=== PATIENT | female | born 1965 | race Caucasian/White ===

== ENCOUNTER 2023-06-05 07:57 | Outpatient (OUT) | payer OTHER, SELFPAY ==
--- NOTE | 2023-06-05 08:00 | MM_ITS ---
Patient Name: ALVIN GARCIA MR#: [id number] : 1965 Exam Date: 06/05/2023 Ordering Doctor: DR Ashish Jansen . RADIOLOGY REPORT PROCEDURE: MM TOMOSYNTHESIS SCREENING BI COMPARISON: MG MAMM SCREEN 3D PO CAD, 11/29/2021. MG MAMM SCREEN PO W CAD, 03/17/2019. MG MAMM SCREEN PO W CAD, 03/16/2018. MG MAMM PO SCRN W CAD DIG, 12/13/2012. INDICATIONS: Screening Calculator Name NCI Breast Cancer Risk Assessment Tool 5 Year Breast Cancer Risk 1.40% Lifetime Breast Cancer Risk 8.90% Personal Breast Cancer No Personal Ovarian Cancer No Treatments None Family Cancers Mother with lung cancer at age 49; Father with lung cancer at age ~66. LOCATION: [facility] BREAST COMPOSITION: Almost entirely fatty. FINDINGS: DIAGNOSTIC CATEGORY 0--INCOMPLETE: NEED ADDITIONAL IMAGING EVALUATION. RIGHT BREAST: No significant suspicious finding. No significant change has occurred. LEFT BREAST: 8 mm nodule with slightly spiculated margins within upper inner quadrant, mid breast. Spot magnification views and ultrasound evaluation recommended. RECOMMENDATIONS: ADDITIONAL MAMMOGRAPHIC VIEWS REQUIRED: LEFT BREAST - LEFT CRANIOCAUDAL SPOT MAGNIFICATION VIEW - LEFT OBLIQUE SPOT MAGNIFICATION VIEW - ULTRASOUND: LEFT BREAST PLEASE NOTE: A NORMAL MAMMOGRAM DOES NOT EXCLUDE THE POSSIBILITY OF BREAST CANCER. A CLINICALLY SUSPICIOUS PALPABLE LUMP SHOULD BE BIOPSIED. Dictated by: Partha Palma M.D. on 06/05/2023 at 15:56 Approved by: Partha Palma M.D. on 06/05/2023 at 16:00
== END 2023-06-05 07:58 | disposition home or self-care (01) ==
LOC: MAMMO 07:57
PROVIDERS: Visit Provider Obstetrics & Gynecology
DX: Z12.31 Encounter for screening mammogram for malignant neoplasm of breast (principal); Z80.1 Family history of malignant neoplasm of trachea, bronchus and lung; N63.22 Unspecified lump in the left breast, upper inner quadrant
CPT/HCPCS: 77063; 77067

== ENCOUNTER 2023-06-18 13:53 | Outpatient (OUT) | payer OTHER, SELFPAY ==
--- NOTE | 2023-06-18 13:56 | US_ITS ---
Patient Name: ALVIN GARCIA MR#: [id number] : 1965 Exam Date: 06/18/2023 Ordering Doctor: DR Ashish Jansen . RADIOLOGY REPORT PROCEDURE: MM DIAGNOSTIC MAMMO UNILAT LT, 06/18/2023, 14:08 US BREAST LT LIMITED, 06/18/2023, 13:39 COMPARISON: MM TOMOSYNTHESIS SCREENING BI, 06/05/2023. MG MAMM SCREEN 3D PO CAD, 11/29/2021. MG MAMM SCREEN PO W CAD, 03/17/2019. MG MAMM SCREEN PO W CAD, 03/16/2018. INDICATIONS: mass of left breast N63.20 Calculator Name NCI Breast Cancer Risk Assessment Tool 5 Year Breast Cancer Risk 1.40% Lifetime Breast Cancer Risk 8.90% Personal Breast Cancer No Personal Ovarian Cancer No Treatments None Family Cancers Mother with lung cancer at age 49; Father with lung cancer at age ~66. LOCATION: [facility] BREAST COMPOSITION: Almost entirely fatty. FINDINGS: DIAGNOSTIC CATEGORY 4--SUSPICIOUS FOR MALIGNANCY. FINDING DOES NOT EXHIBIT CLASSIC FINDINGS OF BREAST CANCER: LEFT BREAST: Spot magnification views demonstrate a 9 mm spiculated nodule within the upper inner quadrant, near 12 o'clock position, mid breast. Ultrasound evaluation demonstrates a slightly spiculated shadowing mass at the 11 o'clock position which is taller than wide, 7 x 5 x 5 millimeters, felt to correspond to the mammographic finding. Ultrasound-guided biopsy is recommended. RECOMMENDATIONS: ULTRASOUND-GUIDED CORE BIOPSY: LEFT BREAST PLEASE NOTE: A NORMAL MAMMOGRAM DOES NOT EXCLUDE THE POSSIBILITY OF BREAST CANCER. A CLINICALLY SUSPICIOUS PALPABLE LUMP SHOULD BE BIOPSIED. Dictated by: Partha Palma M.D. on 06/18/2023 at 15:03 Approved by: Partha Palma M.D. on 06/18/2023 at 15:16
--- OUTSIDE RECORDS SUMMARY | 2023-06-18 14:10 | XMS_ITS | CCD ---
Author Name Unknown Address [facility] [place] [address] Organization [employer] Care Team Providers Care Datastage Architect Name Role Phone Mundo Simeon Primary Care Provider MUNDO SIMEON Attending Unavai lable BRENDEN MUNDO MILLADO Referring Unavai lable BRENDEN, MUNDO MILLADO Primary Care Unavai lable BRENDEN MUNDO MILLADO Admitting Unavai lable BRENDEN, MUNDO MILLADO Referring Unavai lable BRENDEN, MUNDO MILLADO Primary Care Unavai lable BRENDEN, MUNDO MILLADO Admitting Unavai lable BRENDEN, MUNDO MILLADO Attending Unavai lable BRENDEN, MUNDO MILLADO Primary Care Unavai lable BRENDEN, MUNDO MILLADO Attending Unavai lable BRENDEN, MUNDO MILLADO Referring Unavai lable BRENDEN, MUNDO MILLADO Primary Care Unavai lable BRENDEN, MUNDO MILLADO Attending Unavai lable BRENDEN, MUNDO MILLADO Referring Unavai lable BRENDEN, MUNDO MILLADO Primary Care UnavaHenny Quispe Primary Care Provider JAMES MARIE Admitting Unavailab JAMES [place] Referring Unavailab MUNDO Nice Primary Care Unavailable Henny Hendrix Primary Care Provider HENNY HENDRIX Primary Care Unavailable SIXTO DELGADILLO Referring Unavailable HENNY HENDRIX Primary Care Unavailable HENNY HENDRIX Primary Care Unavailable VERHOFF, HENNY L Primary Care Unavailable VERHOFF, HENNY L Primary Care Unavailable VERHOFF, HENNY L Primary Care Unavailable VERHOFF, HENNY L Primary Care Unavailable SIXTO DELGADILLO Referring Unavailable VERHOFF, HENNY L Primary Care Unavailable VERHOFF, HENNY L Primary Care Unavailable VERHOFF, HENNY L Primary Care Unavailable VERHOFF, HENNY L Primary Care Unavailable VERHOFF, HENNY L Primary Care Unavailable VERHOFF, HENNY L Primary Care Unavailable VERHOFF, HENNY L Primary Care Unavailable VERHOFF, HENNY L Primary Care Unavailable VERHOFF, HENNY L Primary Care Unavailable VERHOFF, HENNY L Primary Care Unavailable VERHOFF, HENNY L Primary Care Unavailable VERHOFF, HENNY L Primary Care Unavailable VERHOFF, HENNY L Primary Care Unavailable VERHOFF, HENNY L Primary Care Unavailable SIXTO DELGADILLO Referring Unavailable VERHOFF, HENNY L Primary Care Unavailable VERHOFF, HENNY L Primary Care Unavailable VERHOFF, HENNY L Primary Care Unavailable VERHOFF, HENNY L Primary Care Unavailable SIXTO DELGADILLO Referring Unavailable VERHOFF, HENNY L Primary Care Unavailable VERHOFF, HENNY L Primary Care Unavailable VERHOFF, HENNY L Primary Care Unavailable KyeJames Camron Unavailable [phone] BRISSA ., DR WHALEN Admitting Unavailable BRISSA ., DR WHALEN Attending Unavailable [facility] [place] VILLAFUERTE Primary Care Unavailable BRISSA ., DR WHALEN Consulting Unavailable MARGARET, DR JEANNIE Brunner Consulting Unavailable BRISSA ., DR WHALEN Admitting Unavailable BRISSA ., DR WHALEN Attending Unavailable [facility] [place] VILLAFUERTE Primary Care Unavailable BRISSA ., DR WHALEN Consulting Unavailable Medications Current Medications Medication Drug Class(es) Dates Sig (Normalized) Sig (Original) traMADol hydrochloride 50 mg oral tablet (1 source) Opioid Agonist Start: 02-23-2019 End: 02-26-2019 take 1 tablet by mouth every eight hours as needed for pain, then take 3 tablets by mouth as needed for pain traMADol (ULTRAM) 50 mg tablet Indications: Acute post-operative pain Take 1 (one) tablet (50 mg total) by mouth every 8 (eight) hours as needed for pain Days supply 3 . 9 tablet 0 02/23/2019 02/26/2019 Active Completed/Discontinued Medications Medication Drug Class(es) Dates Sig (Normalized) Sig (Original) acetaminophen 325 mg oral tablet (1 source) Start: 02-22-2019 End: 02-23-2019 take 1 tablet by mouth every four hours as needed 650 mg, Oral, Every 4 hours PRN, mild pain, headaches, Starting Thu02/22/19 at 1835 calcium chloride 0.0014 meq/ml / potassium chloride 0.004 meq/ml / sodium chloride 0.103 meq/ml / sodium lactate 0.028 meq/ml injectable solution (1 source) Start: 02-22-2019 End: 02-22-2019 take 100 mL intravenous route every hour 100 mL/hr, Intravenous, Continuous, Starting Thu02/22/19 at 1300 ceFAZolin (ANCEF) 1000 mg in sodium chloride (NS) 0.9% 50 mL MBP (1 source) Start: 02-22-2019 End: 02-22-2019 1,000 mg, Intravenous, at 100 mL/hr, Once, Thu02/22/19 at 1930, For 1 dose Starting 8 hours after pre-procedure dose Indication (POST PROCEDURE): OTHER Indication (POST PROCEDURE): POST OP LAP CHOLECYSTECTOMY 1 ml ketorolac tromethamine 30 mg/ml injection (1 source) Nonsteroidal Anti-inflammatory Drug, Cyclooxygenase Inhibitor Start: 02-22-2019 End: 02-23-2019 take 15 mg intravenous route every six hours 15 mg, Intravenous, Every 6 hours, First dose on Thu02/22/19 at 2000, For 4 doses 1 ml morphine sulfate 2 mg/ml prefilled syringe (1 source) Opioid Agonist Start: 02-22-2019 End: 02-23-2019 take 2-4 mg intravenous route every three hours as needed 2-4 mg, Intravenous, Every 3 hours PRN (may repeat), moderate to severe pain, Starting Thu02/22/19 at 1835 [] Initiate with 2 mg IV every 3 hours prn moderate to severe pain. [] For unrelieved pain, may repeat 2 mg IV dose within 30 minutes of initial dose. [] If pain is RELIEVED after repeat dose, change to 4 mg IV every 3 hours prn moderate to severe pain. [] If pain is UNrelieved after repeat dose, or patient requires dose reduction, call physician. [] May use IV for breakthrough pain or if unable to tolerate oral route. 2 ml ondansetron 2 mg/ml injection (1 source) Serotonin-3 Receptor Antagonist Start: 02-22-2019 End: 02-23-2019 take 4 mg intravenous route every six hours as needed 4 mg, Intravenous, Every 6 hours PRN, nausea, vomiting, Starting Thu02/22/19 at 1835 pantoprazole 40 mg injection (1 source) Proton Pump Inhibitor Start: 02-22-2019 End: 02-23-2019 40 mg, Intravenous, Daily, First dose on Thu02/22/19 at 1930 1000 ml sodium chloride 9 mg/ml injection (2 sources) Start: 02-22-2019 End: 02-23-2019 take 125 mL intravenous route every hour 125 mL/hr, Intravenous, Continuous, Starting Thu02/22/19 at 1930 Start: 02-22-2019 End: 02-23-2019 sodium chloride (PF) (NS) fl ush 5 mL Problems Active Problems Problem Classification Problem Date Documented Da te Episodic/Chronic Other connective tissue disease (20 sources) Left achilles tendonitis; Translations: [Left Achilles tendinitis] Onset: 01-26-2020 01-26-2020 Other screening for suspected conditions (not mental disorders or infectious disease) (8 sources) Encounter for screening for malignant neoplasm of cervix; Translations: [Encounter for screening mammogram for malignant neoplasm of breast] Onset: 11-29-2021 Episodic Residual codes; unclassified (2 sources) Family history of malignant neoplasm of lung; Translations: [Family history of lung cancer] Episodic Residual codes; unclassified (3 sources) Preoperative state; Translations: [Pre-operative clearance] Episodic Unclassified (1 source) Patient encounter status; Translations: [Screening for hyperlipidemia] Past or Other Problems Problem Classification Problem Date Documented Date Episodic/Chronic Abdominal pain (1 source) Right upper quadrant pain; Translations: [Abdominal pain, right upper quadrant] Episodic Other nervous system disorders (1 source) Acute postoperative pain; Translations: [Acute post-operative pain] Episodic Residual codes; unclassified (1 source) Family history of malignant neoplasm of trachea, bronchus and lung; Translations: [FAM HX MALIG NEOPLSM TRACH BRON LNG] Onset: 12-05-2021 Episodic Results Test Name Value Interpretation Reference Range Facility PAP ACOG PANEL 2: 30 to 65on 08-26-2022 . . Normal [facility] Comment on above: Result Comment: Perf ormed at: WB Performed By: #### [id number] #### [facility] [address] [address] [address] Karissa Black Age Gdln ACOG Testing 30-65 Normal [facility] Comment on above: Performed By: #### [id number] #### [facility] [address] [address] [address] Karissa Black DIAGNOSIS: Comment Normal [facility] Comment on above: Result Comment: NEGA TIVE FOR INTRAEPITHELIAL LESION OR MALIGNANCY. Performed at: WB Performed By: #### [id number] #### [facility] [address] [address] [address] Karissa Black HPV Aptima Negative Normal Negative [facility] Comment on above: Result Comment: This nucleic acid amplification test detects fourteen high-risk HPV types (16,18,31,33,35,39,45,51,52,56,58,59,66,68) without differentiation. Performed at: =G Performed By: #### [id number] #### [facility] [address] [address] [address] Karissa Black HPV Genotype Reflex Comment Normal [facility] Comment on above: Result Comment: Crit eria not met, HPV Genotype not performed. Performed at: WB Performed By: #### [id number] #### [facility] [address] [place] [address] Dr. Karissa Black Methodology: Comment Normal [facility] Comment on above: Result Comment: This liquid based ThinPrep(R) pap test was screened with the use of an image guided system. Performed at: WB Performed By: #### [id number] #### [facility] [address] [place] [address] Dr. Karissa Black Note: Comment Normal [facility] Comment on above: Result Comment: The Pap smear is a screening test designed to aid in the detection of premalignant and malignant conditions of the uterine cervix. It is not a diagnostic procedure and should not be used as the sole means of detecting cervical cancer. Both false-positive and false-negative reports do occur. . Performed at: WB Performed By: #### [id number] #### [facility] [address] [address] [address] Karissa Black Performed by: Comment Normal [facility] Comment on above: Result Comment: Brenda Alexander, Fertilizing Machine Operator (ASCP) Performed at: WB Performed By: #### [id number] #### [facility] [address] [address] [address] Karissa Black Specimen adequacy: Comment Normal [facility] Comment on above: Result Comment: Sati sfactory for evaluation. Endocervical and/or squamous metaplastic cells (endocervical component) are present. Performed at: WB Performed By: #### [id number] #### [facility] [address] [place] [address] Dr. Karissa Black MG MAMM SCREEN 3D PO CADon 11-29-2021 MG MAMM SCREEN 3D PO CAD Patient: ALVIN GARCIA Exam Date: 11/29/2021 : 1965 Gender:F Ordering : DR KOBY BRUMFIELD . Admission #: [id number] Family : Order #: [id number] CLICK HERE TO VIEW EXAM RADIOLOGY REPORT PROCEDURE: MAMMOGRAM SCREENING 3D BILATERAL CAD COMPARISON: MG MAMM SCREEN PO W CAD, 03/17/2019. MG MAMM SCREEN PO W CAD, 03/16/2018. INDICATIONS: Screening mammography Calculator Name NCI Breast Cancer Risk Assessment Tool 5 Year Breast Cancer Risk 1.30% Lifetime Breast Cancer Risk 9.10% Personal Breast Cancer No Personal Ovarian Cancer No Treatments None Family Cancers Mother with lung cancer at age 49; Father with lung cancer at age 66. LOCATION: [facility] BREAST COMPOSITION: Almost entirely fatty. FINDINGS: DIAGNOSTIC CATEGORY 2--BENIGN FINDING: RIGHT BREAST: No significant suspicious finding. No significant change has occurred. LEFT BREAST: No significant suspicious finding. Small chronic nodule within upper central breast, approximately 12 o'clock. No significant change has occurred. RECOMMENDATIONS: ROUTINE MAMMOGRAM AND CLINICAL EVALUATION IN 12 MONTHS. PLEASE NOTE: A NORMAL MAMMOGRAM DOES NOT EXCLUDE THE POSSIBILITY OF BREAST CANCER. A CLINICALLY SUSPICIOUS PALPABLE LUMP SHOULD BE BIOPSIED. Dictated by: Jeannie Palma M.D. on 11/29/2021 at 11:14 Approved by: Jeannie Palma M.D. on 11/29/2021 at 11:18 Normal [facility] COVID-19, MOLECULARon 2019 SARS-COV-2 RNA (ITALIA) Not Detected Normal Not Detected [facility] Comment on above: Result Comment: This test was performed under the FDA's Emergency Use Authorization (EUA). Testing was performed using the Clayton SARS-CoV-2 assay on the [employer] Clayton 6800 System. This test has not been approved for use in asymptomatic patients and its performance in this patient population has not been evaluated. Negative results do not rule out the presence of SARS-CoV-2/COVID-19. Fact sheets for this EUA can be found at the following links: For Healthcare Providers: https://www.fda.gov/media/762251/download For Patients: https://www.fda.gov/media/414788/download Performed By: #### L [id number] #### [facility] [address] [place] [address] Blake Curry M.D. [id number] XR CHEST (2 VW)on 01-27-2020 XR CHEST (2 VW) EXAM: XR CHEST (2 VW ) HISTORY: Reason for exam:->pre op clearance COMPARISON: Two-view chest from 02/21/2019. TECHNIQUE: Frontal and lateral films are done of the chest. FINDINGS: Trachea, mediastinum and heart size are unremarkable. The lungs are clear and well aerated. No infiltrate or nodule or effusion or pneumothorax is noted. The diaphragm and bony elements are intact. IMPRESSION: Nonacute two-view chest. Interpreted by: Bradley Mcguire DO Signed by: Bradley Mcguire DO 01/27/20 Final result Normal [facility] Nonacute two-view chest. [facility] [place], [place] EXAM: XR CHEST (2 VW ) HISTORY: Reason for exam:->pre op clearance COMPARISON: Two-view chest from 02/21/2019. TECHNIQUE: Frontal and lateral films are done of the chest. FINDINGS: Trachea, mediastinum and heart size are unremarkable. The lungs are clear and well aerated. No infiltrate or nodule or effusion or pneumothorax is noted. The diaphragm and bony elements are intact. [place], [place] Shamar, M[facility]pn Incoming Radiant Results From [employer] - 01/27/2020 2:40 AM EDT EXAM: XR CHEST (2 VW) HISTORY: Reason for exam:->pre op clearance COMPARISON: Two-view chest from 02/21/2019. TECHNIQUE: Frontal and lateral films are done of the chest. FINDINGS: Trachea, mediastinum and heart size are unremarkable. The lungs are clear and well aerated. No infiltrate or nodule or effusion or pneumothorax is noted. The diaphragm and bony elements are intact. IMPRESSION: Nonacute two-view chest. [place], [place] Basic Metabolic Panelon 01-03 Anion gap [Moles/Vol] 11 mmol/L 9 - 17 mmol/L [place] Bun/Cre Ratio 15 [place], [place] Calcium [Mass/Vol] 9.6 mg/dL 8.6 - 10. 4 mg/dL [place], [place] Chloride [Moles/Vol] 105 mmol/L 98 - 10 7 mmol/L [place] CO2 [Moles/Vol] 26 mmol/L 20 - 31 mmol/L [place] Creatinine [Mass/Vol] 1.07 mg/dL High 0.5 - 0.9 mg/dL [place] GFR >60 >60 mL/min [place] GFR Non- 54 mL/min Low >60 [place] GFR/1.73 sq M predicted among non-blacks MDRD (S/P/Bld) [Vol rate/Area] NOT REPORTED [place] GFR/1.73 sq M predicted among non-blacks MDRD (S/P/Bld) [Vol rate/Area] [place], [place] Comment on above: Average GFR for 50-5 9 years old: 93 mL/min/1.73sq m Chronic Kidney Disease: <60 mL/min/1.73sq m Kidney failure: <15 mL/min/1.73sq m eGFR calculated using average adult body mass. Additional eGFR calculator available at: http://www.globalrph.com/multiple_crcl_2012.htm Glucose [Mass/Vol] 96 mg/dL 70 - 99 mg/dL [place], [place] Interpretation and review of laboratory results Abnormal [place], [place] Potassium [Moles/Vol] 4.4 mmol/L 3.7 - 5.3 mmol/L [place] Sodium [Moles/Vol] 142 mmol/L 135 - 144 mmol/L [place] Urea nitrogen [Mass/Vol] 16 mg/dL 6 - 20 mg/dL [place] Basic Metabolic Profon 01-25 (cont.) Normal [facility] Comment on above: Result Comment: Aver age GFR for 50-59 years old: 93 mL/min/1.73sq m Chronic Kidney Disease: <60 mL/min/1.73sq m Kidney failure: <15 mL/min/1.73sq m eGFR calculated using average adult body mass. Additional eGFR calculator available at: http://www.Sincerely/multiple_crcl_2012.htm Performed By: #### Dmitriy FAST , BMP #### [facility] [address] [place] [address] Obgyn Hospitalist Physician: Adam Burdick MD #### LIPR #### [facility] [address] [place] [id number] Obgyn Hospitalist Physician: Blaine Tarango MD Anion gap [Moles/Vol] 11 mmol/L Normal - [facility] Comment on above: Performed By: #### Dmitriy FAST HH, BMP #### [facility] [address] [place] [address] Obgyn Hospitalist Physician: Adam Burdick MD #### LIPR #### [facility] [address] [place], [place] [id number] Obgyn Hospitalist Physician: Blaine Tarango MD BUN/CRE Ratio 15 Normal - [facility] Comment on above: Performed By: #### Dmitriy MCDONALD , BMP #### [facility] [address] [place], [place] [id number] Obgyn Hospitalist Physician: Adam Burdick MD #### LIPR #### [address] [id number] Obgyn Hospitalist Physician: Blaine Tarango MD Calcium [Mass/Vol] 9.6 mg/dL Normal 8.6-10.4 [facility] Comment on above: Performed By: #### Dmitriy MCDONALD, , BMP #### [facility] [address] [place], [place] [id number] Obgyn Hospitalist Physician: Adam Burdick MD #### LIPR #### [address] [id number] Obgyn Hospitalist Physician: Blaine Tarango MD Chloride [Moles/Vol] 105 mmol/L Normal 98-107 [facility] Comment on above: Performed By: #### Dmitriy MCDONALD, , BMP #### [facility] [address] [place], [place] [id number] Obgyn Hospitalist Physician: Adam Burdick MD #### LIPR #### [address] [id number] Obgyn Hospitalist Physician: Blaine Tarango MD CO2 [Moles/Vol] 26 mmol/L Normal 20-31 [facility] [place] Comment on above: Performed By: #### Dmitriy MCDONALD, , BMP #### [facility] [address] [place], [place] [id number] Obgyn Hospitalist Physician: Adam Burdick MD #### LIPR #### [address] [id number] Obgyn Hospitalist Physician: Blaine Tarango MD Creatinine [Mass/Vol] 1.07 mg/dL High 0.50-0.90 [facility] Comment on above: Performed By: #### Dmitriy MCODNALD , BMP #### [facility] [address] [place], [place] [id number] Obgyn Hospitalist Physician: Adam Burdick MD #### LIPR #### [facility] [address] [place] [address] Obgyn Hospitalist Physician: Blaine Tarango MD GFR, Amer >60 Normal >60 [facility] Comment on above: Performed By: #### Dmitriy FAST, , BMP #### [facility] [address] [place] [address] Obgyn Hospitalist Physician: Adam Burdick MD #### LIPR #### [address] [address] Obgyn Hospitalist Physician: Blaine Tarango MD GFR,non Amer 54 mL/min Low >60 [facility] Comment on above: Performed By: #### Dmitriy FAST, , BMP #### [facility] [address] [place] [address] Obgyn Hospitalist Physician: Adam Burdick MD #### LIPR #### [address] [address] Obgyn Hospitalist Physician: Blaine Tarango MD Glucose [Mass/Vol] 96 mg/dL Normal 70-99 [facility] Comment on above: Performed By: #### Dmitriy FAST, , BMP #### [facility] [address] [place] [address] Obgyn Hospitalist Physician: Adam Burdick MD #### LIPR #### [address] [address] Obgyn Hospitalist Physician: Blaine Tarango MD Potassium [Moles/Vol] 4.4 mmol/L Normal 3.7-5.3 [facility] Comment on above: Performed By: #### Dmitriy FAST, HH, BMP #### [facility] [address] [place] [address] Obgyn Hospitalist Physician: Adam Burdick MD #### LIPR #### [address] [id number] Obgyn Hospitalist Physician: Blaine Tarango MD Sodium [Moles/Vol] 142 mmol/L Normal 135-144 [facility] Comment on above: Performed By: #### Dmitriy MCDONALD , BMP #### [facility] [address] [place], [place] [id number] Obgyn Hospitalist Physician: Adam Burdick MD #### LIPR #### [facility] [address] [place], [place] [phone] Obgyn Hospitalist Physician: Blaine Tarango MD Urea nitrogen [Mass/Vol] 16 mg/dL Normal 6-20 [facility] Comment on above: Performed By: #### MERNA AKBAR, BMP #### [facility] [address] [place] [address] Obgyn Hospitalist Physician: Adam Burdick MD #### LIPR #### [address] [id number] Obgyn Hospitalist Physician: Blaine Tarango MD Staging: NOT REPORTED Normal [facility] Comment on above: Performed By: #### MERNA AKBAR, BMP #### [facility] [address] [place] [address] Obgyn Hospitalist Physician: Adam Burdick MD #### LIPR #### [facility] [address] [place] [id number] Obgyn Hospitalist Physician: Blaine Tarango MD Hemoglobin And Hematocrit, B loodon 01-26-2020 Hematocrit (Bld) [Volume fraction] 42.7 % 36 - 46 % [place], [place] Hemoglobin (Bld) [Mass/Vol] 13.9 g/dL 12 - 16 g/dL [place] Hgb/Hcton 01-26-2020 Hematocrit (Bld) [Volume fraction] 42.7 % Normal 36-46 [facility] Comment on above: Performed By: #### MERNA AKBAR, BMP #### [facility] [address] [place] [address] Obgyn Hospitalist Physician: Adam Burdick MD #### LIPR #### [facility] [address] [place], [place] [phone] Obgyn Hospitalist Physician: Blaine Tarango MD Hemoglobin (Bld) [Mass/Vol] 13.9 g/dL Normal 12.0-16.0 [facility] Comment on above: Performed By: #### Dmitriy FAST, MERNA, BMP #### [facility] [address] [address] Obgyn Hospitalist Physician: Adam Burdick MD #### LIPR #### [facility] [address] [place], [place] [phone] Obgyn Hospitalist Physician: Blaine Tarango MD Lipid Panelon 01-26-2020 Cholesterol [Mass/Vol] 217 mg/dL High <200 [place], [place] Comment on above: Cholesterol Guidelines: <200 Desirable 200-240 Borderline >240 Undesirable Cholesterol in HDL [Mass/Vol] 49 mg/dL >40 [place] Comment on above: HDL Guidelines: <40 Undesirable 40-59 Borderline >59 Desirable Cholesterol in LDL [Mass/Vol] 143 mg/dL High 0 - 130 mg/dL [place] Comment on above: LDL Guidelines: <100 Desirable 100-129 Near to/above Desirable 130-159 Borderline >159 Undesirable Direct (measured) LDL and calculated LDL are not interchangeable tests. Cholesterol in VLDL [Mass/Vol] NOT REPORTED 1 - 30 mg/dL [place] Cholesterol.total/Ch olesterol in HDL [Mass ratio] 4.4 {ratio} <5 [place] Interpretation and review of laboratory results Abnormal [place] Triglyceride [Mass/Vol] 124 mg/dL <150 [place] Comment on above: Triglyceride Guidelines: <150 Desirable 150-199 Borderline 200-499 High >499 Very high Based on AHA Guidelines for fasting triglyceride, February 2012. Lipid Profileon 01-26-2020 Cholesterol [Mass/Vol] 217 mg/dL High <200 [facility] Comment on above: Result Comment: Cholesterol Guidelines: <200 Desirable 200-240 Borderline >240 Undesirable Performed By: #### Z FAST, , BMP #### [facility] [address] [place], [place] [id number] Obgyn Hospitalist Physician: Adam Burdick MD #### LIPR #### [facility] [address] [place] [address] Obgyn Hospitalist Physician: Blaine Tarango MD Cholesterol in HDL [Mass/Vol] 49 mg/dL Normal >40 [facility] Comment on above: Result Comment: HDL Guidelines: <40 Undesirable 40-59 Borderline >59 Desirable Performed By: #### Dmitriy MCDONALD , BMP #### [facility] [address] [place], [place] [id number] Obgyn Hospitalist Physician: Adam Burdick MD #### LIPR #### [address] [id number] Obgyn Hospitalist Physician: Blaine Tarango MD Cholesterol in LDL [Mass/Vol] 143 mg/dL High 0-130 [facility] Comment on above: Result Comment: LDL Guidelines: <100 Desirable 100-129 Near to/above Desirable 130-159 Borderline >159 Undesirable Direct (measured) LDL and calculated LDL are not interchangeable tests. Performed By: #### Dmitriy MCDONALD , BMP #### [facility] [address] [place], [place] [phone] Obgyn Hospitalist Physician: Adam Burdick MD #### LIPR #### [address] [address] Obgyn Hospitalist Physician: Blaine Tarango MD Cholesterol.total/Ch olesterol in HDL [Mass ratio] 4.4 {ratio} Normal <5 [facility] Comment on above: Performed By: #### MERNA AKBAR, BMP #### [facility] [address] [place], [place] [id number] Obgyn Hospitalist Physician: Adam Burdick MD #### LIPR #### [address] [id number] Obgyn Hospitalist Physician: Blaine Tarango MD Triglyceride [Mass/Vol] 124 mg/dL Normal <150 [facility] Comment on above: Result Comment: Triglyceride Guidelines: <150 Desirable 150-199 Borderline 200-499 High >499 Very high Based on AHA Guidelines for fasting triglyceride, February 2012. Performed By: #### Dmitriy MCDONALD , BMP #### [facility] [address] [place] [address] Obgyn Hospitalist Physician: Adam Burdick MD #### LIPR #### [id number] [place] [address] Obgyn Hospitalist Physician: Blaine Tarango MD Cholesterol in VLDL [Mass/Vol] NOT REPORTED Normal 06-02 [facility] Comment on above: Performed By: #### Dmitriy MCDONALD , BMP #### [facility] [address] [place] [address] Obgyn Hospitalist Physician: Adam Burdick MD #### LIPR #### [facility] [address] [place] [address] Obgyn Hospitalist Physician: Blaine Tarango MD Patient Fasting?on 0 Patient Fasting? NO [place], [place] Patient fasting?on 0 Patient fasting? NO Normal [facility] Comment on above: Performed By: #### Dmitriy MCDONALD , BMP #### [facility] [address] [place], [place] [id number] Obgyn Hospitalist Physician: Adam Burdick MD #### LIPR #### [facility] [address] [place] [address] Obgyn Hospitalist Physician: Blaine Tarango MD Basic Metabolic Panelon 10-2 Anion gap [Moles/Vol] 11 mmol/L 10 - 20 mmol/L [facility] Calcium [Mass/Vol] 8.6 mg/dL 8.4 - 10. 2 mg/dL [facility] Chloride [Moles/Vol] 108 mmol/L 98 - 10 8 mmol/L [facility] Creatinine [Mass/Vol] 1.30 mg/dL High 0.4 - 1.1 mg/dL [facility] GFR/1.73 sq M predicted among non-blacks MDRD (S/P/Bld) [Vol rate/Area] The eGFR should be used for monitoring renal function only and not for medication dosing. [facility] GFR/1.73 sq M.predicted CKD-EPI (S/P/Bld) [Vol rate/Area] 47 Low >=60 mL/min/1.73 m2 [facility] Glucose [Mass/Vol] 123 mg/dL High 65 - 99 mg/dL [facility] HCO3 [Moles/Vol] 27 mmol/L 21 - 32 mmol/L [facility] Interpretation and review of laboratory results Abnormal [facility] Potassium [Moles/Vol] 4.6 mmol/L 3.5 - 5.1 mmol/L [facility] Sodium [Moles/Vol] 141 mmol/L 135 - 145 mmol/L [facility] Urea nitrogen [Mass/Vol] 19 mg/dL 8 - 25 mg/dL [facility] Urea nitrogen/Creatinine [Mass ratio] 14.6 mg/mg [facility] CBCon 02-23-2019 Erythrocyte distribution width (RBC) [Entitic vol] 13.2 % 11.6 - 14.8 % [facility] Hematocrit (Bld) [Volume fraction] 42.6 % 36 - 46 % [facility] Hemoglobin (Bld) [Mass/Vol] 13.9 g/dL 12 - 16 g/dL [facility] Interpretation and review of laboratory results Abnormal [facility] MCH (RBC) [Entitic mass] 29.4 pg 26 - 34 pg [facility] MCHC (RBC) [Mass/Vol] 32.6 g/dL 31 - 37 g/dL [facility] MCV (RBC) [Entitic vol] 90.1 fL 80 - 100 fL [facility] Platelet mean volume (Bld) [Entitic vol] 10.3 fL 9 - 15.5 fL [facility] Platelets (Bld) [#/Vol] 257 10*3/uL [facility] RBC (Bld) [#/Vol] 4.73 10*6/uL [facility] WBC (Bld) [#/Vol] 13.62 10*3/uL High [facility] XR CHEST AP/PA AND LATon No acute cardiopulmonary process. ST/mjr Workstation ID: [id number] [facility] EXAMINATION: XR CHES T AP/PA AND LAT HISTORY: ORDERING SYSTEM PROVIDED HISTORY: z80.1, TECHNOLOGIST PROVIDED HISTORY: Illness/Other Reason for exam: PRE-OP FOR GB SX, NO CURRENT PROBLEMS, FAMILY HX OF LUNG CA Cancer History: N Surgery, RadiationHistory: N Encounter Type: Initial Additional signs and symptoms: NO ORDERING SYSTEM PROVIDED DIAGNOSIS CODES: Z80.1 Family history of lung cancer COMPARISON: None. FINDINGS: Two-view chest x-ray. No pneumothorax, pleural effusion or focal airspace consolidation. Heart is normal in size. Bony thorax is unremarkable. [facility] Interface, Rad In Fuji Speechq - 02/21/2019 10:34 PM EDT EXAMINATION: XR CHEST AP/PA AND LAT HISTORY: ORDERING SYSTEM PROVIDED HISTORY: z80.1, TECHNOLOGIST PROVIDED HISTORY: Illness/Other Reason for exam: PRE-OP FOR GB SX, NO CURRENT PROBLEMS, FAMILY HX OF LUNG CA Cancer History: N Surgery, RadiationHistory: N Encounter Type: Initial Additional signs and symptoms: NO ORDERING SYSTEM PROVIDED DIAGNOSIS CODES: Z80.1 Family history of lung cancer COMPARISON: None. FINDINGS: Two-view chest x-ray. No pneumothorax, pleural effusion or focal airspace consolidation. Heart is normal in size. Bony thorax is unremarkable. IMPRESSION: No acute cardiopulmonary process. [employer] Workstation ID: [id number] [facility] XR CHEST AP/PA AND LAT EXAMINATION: XR CHEST AP/PA AND LAT HISTORY: ORDERING SYSTEM PROVIDED HISTORY: z80.1, TECHNOLOGIST PROVIDED HISTORY: Illness/Other Reason for exam: PRE-OP FOR GB SX, NO CURRENT PROBLEMS, FAMILY HX OF LUNG CA Cancer History: N Surgery, RadiationHistory: N Encounter Type: Initial Additional signs and symptoms: NO ORDERING SYSTEM PROVIDED DIAGNOSIS CODES: Z80.1 Family history of lung cancer COMPARISON: None. FINDINGS: Two-view chest x-ray. No pneumothorax, pleural effusion or focal airspace consolidation. Heart is normal in size. Bony thorax is unremarkable. IMPRESSION: No acute cardiopulmonary process. [employer] Workstation ID: [id number] Dictated by: LUIS WARNER on ThuFeb 21, 2019 5:05:13 PM EDT Transcribed by: ANSELMO LOOMIS on ThuFeb 21, 2019 5:23:55 PM EDT Finalized by: LUIS WARNER on ThuFeb 21, 2019 10:31:19 PM EDT [facility] Comment on above: Order Comment: Injur y/Trauma or Illness?:Illness/Other How long have you had these symptoms (acute/chronic)?:Acute Reason for exam?:PRE-OP FOR GB SX, NO CURRENT PROBLEMS, FAMILY HX OF LUNG CA History of cancer?:N Surgeries, chemotherapy, or radiation?:N Type of Exam?:Initial Additional signs and symptoms?:NO US ABDOMEN LIMITED STUDYon 1 US ABDOMEN LIMITED STUDY EXAMINATION: US ABDOMEN LIMITED STUDY HISTORY: ORDERING SYSTEM PROVIDED HISTORY: Abdominal pain, right upper quadrant, TECHNOLOGIST PROVIDED HISTORY: Illness/Other Reason for exam: RUQ PAIN W/N AND V X 1 YEAR Cancer History: N Surgery, RadiationHistory: N Encounter Type: Initial Additional signs and symptoms: N ORDERING SYSTEM PROVIDED DIAGNOSIS CODES: R10.11 Abdominal pain, right upper quadrant COMPARISON: None. TECHNIQUE: Grayscale and color imaging was performed. FINDINGS: The pancreas is unremarkable. Scanning of the liver demonstrates the liver to be prominent in size with a maximal AP dimension of 17 cm. No focal masses or biliary dilatation is noted. Color flow is noted in the portal and hepatic veins. Scanning of the gallbladder demonstrates echogenic foci in the gallbladder with shadowing consistent with gallstones. The largest stone measures 2.1 cm. There is also suggestion of sludge within the gallbladder. No gallbladder wall thickening is noted. No fluid is noted around the gallbladder. Common bile duct is normal measuring 3 mm. Right kidney measures 11.2 x 4.8 x 5.8 cm. No solid renal cortical masses are noted. There is a 2.5 x 2.2 cm right parapelvic cyst. IMPRESSION: 1. Liver is prominent in size with a maximal AP dimension of 17 cm. 2. Cholelithiasis. There is also some sludge within the gallbladder. No gallbladder wall thickening is noted. Common bile duct is normal. 3. 2.5 cm right parapelvic cyst involving the right kidney. [facility] Workstation ID: [id number] Dictated by: ALEK ELIZABETH on ThuFeb 18, 2019 8:06:51 AM EDT Transcribed by: LEIDA REGAN on ThuFeb 18, 2019 8:23:50 AM EDT Finalized by: ALEK ELIZABETH on ThuFeb 18, 2019 8:29:52 AM EDT [facility] Comment on above: Order Comment: FRANSISCO SEGURA FROM DR ASENCIO Injury/Trauma or Illness?:Illness/Other How long have you had these symptoms (acute/chronic)?:Acute Reason for exam?:RUQ PAIN W/N AND V X 1 YEAR History of cancer?:N Surgeries, chemotherapy, or radiation?:N Type of Exam?:Initial Additional signs and symptoms?:N Cholesterol [Mass/Vol] 1. Liver is prominent in size with a maximal AP dimension of 17 cm. 2. Cholelithiasis. There is also some sludge within the gallbladder. No gallbladder wall thickening is noted. Common bile duct is normal. 3. 2.5 cm right parapelvic cyst involving the right kidney. [facility] Workstation ID: [id number] [facility] EXAMINATION: US ABDOMEN LIMITED STUDY HISTORY: ORDERING SYSTEM PROVIDED HISTORY: Abdominal pain, right upper quadrant, TECHNOLOGIST PROVIDED HISTORY: Illness/Other Reason for exam: RUQ PAIN W/N&V X 1 YEAR Cancer History: N Surgery, RadiationHistory: N Encounter Type: Initial Additional signs and symptoms: N ORDERING SYSTEM PROVIDED DIAGNOSIS CODES: R10.11 Abdominal pain, right upper quadrant COMPARISON: None. TECHNIQUE: Grayscale and color imaging was performed. FINDINGS: The pancreas is unremarkable. Scanning of the liver demonstrates the liver to be prominent in size with a maximal AP dimension of 17 cm. No focal masses or biliary dilatation is noted. Color flow is noted in the portal and hepatic veins. Scanning of the gallbladder demonstrates echogenic foci in the gallbladder with shadowing consistent with gallstones. The largest stone measures 2.1 cm. There is also suggestion of sludge within the gallbladder. No gallbladder wall thickening is noted. No fluid is noted around the gallbladder. Common bile duct is normal measuring 3 mm. Right kidney measures 11.2 x 4.8 x 5.8 cm. No solid renal cortical masses are noted. There is a 2.5 x 2.2 cm right parapelvic cyst. [facility] Interface, Rad In Tello Speechq - 02/18/2019 8:32 AM EDT EXAMINATION: US ABDOMEN LIMITED STUDY HISTORY: ORDERING SYSTEM PROVIDED HISTORY: Abdominal pain, right upper quadrant, TECHNOLOGIST PROVIDED HISTORY: Illness/Other Reason for exam: RUQ PAIN W/N&V X 1 YEAR Cancer History: N Surgery, RadiationHistory: N Encounter Type: Initial Additional signs and symptoms: N ORDERING SYSTEM PROVIDED DIAGNOSIS CODES: R10.11 Abdominal pain, right upper quadrant COMPARISON: None. TECHNIQUE: Grayscale and color imaging was performed. FINDINGS: The pancreas is unremarkable. Scanning of the liver demonstrates the liver to be prominent in size with a maximal AP dimension of 17 cm. No focal masses or biliary dilatation is noted. Color flow is noted in the portal and hepatic veins. Scanning of the gallbladder demonstrates echogenic foci in the gallbladder with shadowing consistent with gallstones. The largest stone measures 2.1 cm. There is also suggestion of sludge within the gallbladder. No gallbladder wall thickening is noted. No fluid is noted around the gallbladder. Common bile duct is normal measuring 3 mm. Right kidney measures 11.2 x 4.8 x 5.8 cm. No solid renal cortical masses are noted. There is a 2.5 x 2.2 cm right parapelvic cyst. IMPRESSION: 1. Liver is prominent in size with a maximal AP dimension of 17 cm. 2. Cholelithiasis. There is also some sludge within the gallbladder. No gallbladder wall thickening is noted. Common bile duct is normal. 3. 2.5 cm right parapelvic cyst involving the right kidney. [facility] Workstation ID: [id number] [facility] Vital Signs Date Time Vital Sign Value Performing Clinician Floyd tran 02-23-2019 12:20-0400 BP Diastolic 66 mm[Hg] [facility] 02-23-2019 12:20-0400 BP Systolic 143 mm[Hg] [facility] 02-23-2019 12:20-0400 Pulse (Heart Rate) 80 /min [facility] 02-23-2019 12:18-0400 Pulse Oximetry 95 % [facility] 02-23-2019 12:16-0400 Body Temperature 98.49 [degF] [facility] 02-23-2019 07:21-0400 Respiratory Rate 15 /min [facility] 02-22-2019 11:21-0400 BMI (Body Mass Index) 44.43 kg/m2 [facility] 02-22-2019 11:21-0400 Body weight 121.11 kg [facility] 02-22-2019 11:21-0400 Height 165.1 cm [facility] Encounters Encounter Date Encounter Type Care Provider Facility Start: 08-19-2022 End: 08-19-[address] KOBY BRUMFIELD . Facility: Start: 11-29-2021 End: 11-30-[address] KOBY BRUMFIELD . Facility:[facility] Start: 07-17-2020 End: 07-17-2020 Orders Only Erica Mccurdy Work Phone: [facility] Start: 05-23-2020 End: 05-24-2020 Patient encounter procedure [facility] Start: 05-23-2020 End: 05-23-2020 Subsequent hospital visit by physician Oh AGUERO [facility] Comment on above: Arrived Start: 05-21-2020 End: 05-22-2020 Patient encounter procedure [facility] Start: 05-21-2020 End: 05-21-2020 Subsequent hospital visit by physician Diane Hargrove [facility] Physical Therapy Comment on above: Arrived Start: 05-17-2020 End: 05-18-2020 Patient encounter procedure [facility] Start: 05-17-2020 End: 05-17-2020 Subsequent hospital visit by physician Diane PRYOR Physical Therapy Comment on above: Arrived Start: 05-15-2020 End: 05-16-2020 Patient encounter procedure [facility] Start: 05-15-2020 End: 05-15-2020 Subsequent hospital visit by physician Diane Hargrove [facility] Physical Therapy Comment on above: Arrived Start: 05-10-2020 End: 05-11-2020 Patient encounter procedure [facility] Start: 05-10-2020 End: 05-10-2020 Subsequent hospital visit by physician Diane Hargrove [facility] Physical Therapy Comment on above: Arrived Start: 05-08-2020 End: 05-09-2020 Patient encounter procedure [facility] Start: 05-08-2020 End: 05-08-2020 Subsequent hospital visit by physician Oh AGUERO Physical [facility] Comment on above: Arrived Start: 05-03-2020 End: 05-04-2020 [facility] Start: 05-03-2020 End: 05-03-2020 Subsequent hospital visit by physician Diane AGUERO Physical Therapy Comment on above: Arrived Start: 05-01-2020 End: 05-02-2020 Patient encounter procedure HENNY Tosha HENDRIX [facility] Start: 05-01-2020 End: 05-01-2020 Subsequent hospital visit by physician Oh AGUERO Physical Therapy Comment on above: Arrived Start: 04-25-2020 End: 04-26-2020 [facility] Start: 04-25-2020 End: 04-25-2020 Subsequent hospital visit by physician Oh AGUERO Physical Therapy Comment on above: Arrived Start: 04-24-2020 End: 04-25-2020 [facility] Start: 04-24-2020 End: 04-24-2020 Subsequent hospital visit by physician Oh AGUERO [facility] Comment on above: Arrived Start: 04-19-2020 End: 04-20-2020 [facility] Start: 04-19-2020 End: 04-19-2020 Subsequent hospital visit by physician Diane AGUERO Physical [facility] Comment on above: Arrived Start: 04-17-2020 End: 04-18-2020 [facility] Start: 04-17-2020 End: 04-17-2020 Subsequent hospital visit by physician Oh AGEURO Physical Therapy Comment on above: Arrived Start: 04-12-2020 End: 04-13-2020 [facility] Start: 04-12-2020 End: 04-12-2020 Subsequent hospital visit by physician Oh AGUERO [facility] Comment on above: Arrived Start: 04-10-2020 End: 04-11-2020 [facility] Start: 04-10-2020 End: 04-10-2020 Subsequent hospital visit by physician Diane AGUERO [facility] Comment on above: Arrived Start: 04-05-2020 End: 04-06-2020 Patient encounter procedure HENNY Tosha HENDRIX [facility] Start: 04-05-2020 End: 04-05-2020 Subsequent hospital visit by physician Diane Hargrove [facility] Comment on above: Arrived Start: 04-03-2020 End: 04-04-2020 Patient encounter procedure HENNYAYLA HENDRIX [facility] Start: 04-03-2020 End: 04-03-2020 Subsequent hospital visit by physician Oh Elizabeth [facility] Comment on above: Arrived Start: 03-27-2020 End: 03-28-2020 Patient encounter procedure HENNY Tosha HENDRIX [facility] Start: 03-27-2020 End: 03-27-2020 Subsequent hospital visit by physician Breanna Cisse [facility] Comment on above: Arrived Start: 03-26-2020 End: 03-27-2020 [facility] Start: 03-26-2020 End: 03-26-2020 Subsequent hospital visit by physician Diane Hargrove [facility] Comment on above: Arrived Start: 03-22-2020 End: 03-23-2020 [facility] Start: 03-22-2020 End: 03-22-2020 Subsequent hospital visit by physician Breanna Cisse [facility] Comment on above: Arrived Start: 03-19-2020 End: 03-20-2020 Patient encounter procedure SOPHIA Tosha [facility]BYVID[facility] Start: 03-19-2020 End: 03-19-2020 Subsequent hospital visit by physician Mohini Pérez Work Phone: [facility] Comment on above: Arrived Start: 03-16-2020 End: 03-17-2020 [facility] Start: 03-16-2020 End: 03-16-2020 Subsequent hospital visit by physician Diane Hargrove [facility] Comment on above: Arrived Start: 03-13-2020 End: 03-14-2020 [facility] Start: 03-13-2020 End: 03-13-2020 Subsequent hospital visit by physician Breanna Cisse [facility] Comment on above: Arrived Start: 03-08-2020 End: 03-09-2020 Patient encounter procedure HENNY Givens [facility] Start: 03-08-2020 End: 03-08-2020 Subsequent hospital visit by physician Breanna Cisse [facility] Physical Therapy Comment on above: Arrived Start: 03-06-2020 End: 03-07-2020 Patient encounter procedure HENNY Givens [facility] Start: 03-06-2020 End: 03-06-2020 Subsequent hospital visit by physician Diane Hargrove [facility] Physical Therapy Comment on above: Arrived Start: 02-03-2020 End: 02-03-2020 [facility] Start: 01-26-2020 End: 01-29-2020 Patient encounter procedure SIXTO DELGADILLO [facility] Start: 01-26-2020 End: 01-28-2020 Subsequent hospital visit by physician Lucrecia Additional Xray At [facility] Comment on above: Screening for hyperl ipidemia; Pre-operative clearance Pre-operative cleara nce Start: 02-22-2019 End: 02-23-2019 Patient encounter procedure [facility] Start: 02-22-2019 End: 02-23-2019 Subsequent hospital visit by physician Mundoreta Simeon Work Phone: [facility] Comment on above: Acute post-operative pain (Primary Dx) Start: 02-21-2019 End: 02-22-2019 Patient encounter procedure [facility] Start: 02-21-2019 End: 02-21-2019 [facility] Comment on above: Family history of machelle ng cancer Start: 02-18-2019 End: 02-22-2019 Patient encounter procedure [facility] Start: 02-18-2019 End: 02-19-2019 Patient encounter procedure [facility] Start: 02-18-2019 End: 02-18-2019 [facility] Comment on above: Abdominal pain, righ t upper quadrant Procedures Date Procedure Procedure Detail Performing Clinician Start: 01-26-2020 Basic metabolic pane l calcium total HENNY HENDRIX Start: 01-26-2020 Blood typing serologic abo HENNY HENDRIX Start: 01-26-2020 HEMOGLOBIN AND HEMAT OCRIT, BLOOD HENNY HENDRIX Start: 01-26-2020 Lipid panel HENNY LANCASTER OFF Start: 01-26-2020 Radiologic exam ches t 2 views HENNY HENDRIX Start: 01-26-2020 Ecg routine ecg w/le ast 12 lds w/i&r HENNY HENDRIX Start: 01-26-2020 Basic metabolic pane l calcium total Sixto Delgadillo Work Phone: Start: 01-26-2020 Blood count hemoglobin Sixto Delgadillo Work Phone: Start: 01-26-2020 Lipid panel Sixto guzman Work Phone: Start: 01-26-2020 PATIENT FASTING? Sixto Delgadillo Work Phone: Start: 01-26-2020 Radiologic exam ches t 2 views Sixto Delgadillo Work Phone: Start: 02-23-2019 Basic metabolic 2000 panel - Serum or Plasma Mundo Simeon Work Phone: Start: 02-23-2019 Complete blood count (hemogram) panel - Blood by Automated count Mundo Simeon Work Phone: Start: 02-22-2019 End: 02-22-2019 CHOLECYSTECTOMY LAPAROSCOPIC Mundo Simeon Work Phone: Start: 02-21-2019 Standard chest X-ray Vi katelyn Simeon Work Phone: Start: 02-18-2019 US scan of upper abdomen Mundo Simeon Work Phone: Start: 07-18-2014 Microscopic observat ion [Identifier] in Cervix by Cyto stain Mundo Tongmanuel Start: 12-14-2013 Mammography Mundo shabazz Plan of Treatment Date Care Activity Detail Author Start: 01-25-2025 [facility] 01-25-2021 [facility] on above: Postponed from 01/02 (Patient Refused) Start: 01-25-2021 Shingles Vaccine (1 of 2) Bergeron gles Vaccine (1 of 2) [place], [place] Comment on above: Postponed from 11/02 (Patient Refused) Start: 05-23-2020 End: 05-23-2020 Appointment 05/23/2020 Appointment Physical Therapy Oh Elizabeth PTA [facility] Start: 05-21-2020 End: 05-21-2020 Appointment 05/21/2020 Appointment Physical Therapy Diane Hargrove PT [facility] Start: 05-17-2020 End: 05-17-2020 Appointment 05/17/2020 Appointment Physical Therapy Diane Hargrove PT [facility] Start: 05-15-2020 End: 05-15-2020 Appointment [facility] Start: 05-10-2020 End: 05-10-2020 Appointment 05/10/2020 Appointment Physical Therapy Diane Hargrove PT [facility] Start: 05-08-2020 End: 05-08-2020 Appointment 05/08/2020 Appointment Physical Therapy Oh Elizabeth PTA [facility] Start: 05-03-2020 End: 05-03-2020 Appointment 05/03/2020 Appointment Physical Therapy Diane Hargrove PT [facility] Start: 05-01-2020 End: 05-01-2020 Appointment 05/01/2020 Appointment Physical Therapy Oh Elizabeth PTA [facility] Start: 04-25-2020 End: 04-25-2020 Appointment 04/25/2020 Appointment Physical Therapy Oh Elizabeth PTA [facility] Start: 04-24-2020 End: 04-24-2020 Appointment 04/24/2020 Appointment Physical Therapy Oh Elizabeth PTA [facility] Start: 04-19-2020 End: 04-19-2020 Appointment 04/19/2020 Appointment Physical Therapy Diane Hargrove, PT [facility] Start: 04-17-2020 End: 04-17-2020 Appointment 04/17/2020 Appointment Physical Therapy Oh Elizabeth RECORDS CLERK [facility] Start: 04-12-2020 End: 04-12-2020 Appointment 04/12/2020 Appointment Physical Therapy Oh Elizabeth RECORDS CLERK [facility] Start: 04-10-2020 End: 04-10-2020 Appointment 04/10/2020 Appointment Physical Therapy Diane Hargrove, PT [facility] Start: 04-05-2020 End: 04-05-2020 Appointment 04/05/2020 Appointment Physical Therapy Diane Hargrove, PT [facility] Start: 04-03-2020 End: 04-03-2020 Appointment 04/03/2020 Appointment Physical Therapy Oh Elizabeth RECORDS CLERK [facility] Start: 03-27-2020 End: 03-27-2020 Appointment 03/27/2020 Appointment Physical Therapy Breanna Cisse [facility] Start: 03-26-2020 End: 03-26-2020 Appointment 03/26/2020 Appointment Physical Therapy Diane Hargrove PT [facility] Start: 03-22-2020 End: 03-22-2020 Appointment 03/22/2020 Appointment Physical Therapy Breanna Cisse [facility] Start: 03-19-2020 End: 03-19-2020 Appointment 03/19/2020 Appointment Physical Therapy Mohini Pérez, PT [address] [place] [address] [phone] [facility] Start: 03-16-2020 End: 03-16-2020 Appointment 03/16/2020 Appointment Physical Therapy Diane Hargrove, PT [facility] Start: 03-13-2020 End: 03-13-2020 Appointment 03/13/2020 Appointment Physical Therapy Breanna Cisse [facility] Start: 03-08-2020 End: 03-08-2020 Appointment 03/08/2020 Appointment Physical Therapy Breanna Cisse [facility] Start: 02-16-2020 DTaP/Tdap/Td vaccine (1 - Tdap) DTaP/Tdap/Td vaccine (1 - Tdap) [place], [place] Comment on above: Postponed from 11/02 (Not Indicated) Start: 01-03-2020 Influenza vaccinatio n given Sequential Influenza Vaccine (#1) [facility] Start: 01-02-2019 Influenza vaccinatio n given SEQUENTIAL INFLUENZA VACCINE (#1) [facility] Start: 07-18-2017 Screening for malign ant neoplasm of cervix [place], [place] Start: 2016 [facility] zoster vaccine Zoster Vaccines (1 of 2) [facility] Start: 2016 Screening for malign ant neoplasm of breast Breast cancer screen [place], [place] Start: 2016 Screening for malign ant neoplasm of colon [place], [place] Start: 12-14-2014 Screening mammography Mammogram [facility] [place] Start: 2006 Lipid panel Lipid screen [place], [place] Start: 1985 DTaP/Tdap/Td vaccine (1 - Tdap) DTaP/Tdap/Td vaccine (1 - Tdap) [place], [place] Start: 1984 Hepatitis C antibody , confirmatory test Hepatitis C Screening [facility] Start: 1982 COVID-19 Vaccine (1 of 2) COVI D-19 Vaccine (1 of 2) [facility] Start: 1981 HIV screening [place], [place] Start: 1978 Adolescent depressio n screening assessment Depression Screening (PHQ9) [facility] Start: 1969 History and physical examination, annual for health maintenance Wellness Visit [facility] Start: 1966 Hepatitis C screening Hepatitis C sc reen [place], [place] Start: 1966 Screening for malign ant neoplasm of cervix PAP SMEAR [facility] Start: 1966 Screening for malign ant neoplasm of colon Colorectal Cancer Screening: Colonoscopy [facility] Start: 1966 Screening mammography Mammogram [facility] Start: 1966 Tetanus vaccination [facility] End: 02-21-2019 12 lead ECG ECG 12 Lead ECG Routine Family history of lung cancer Once for 1 Occurrences starting 02/21/2019 until 02/21/2019 [facility] Comment on above: Once for 1 Occurrenc es starting 02/21/2019 until 02/21/2019 EKG 12 lead EKG 12 lead ECG Routine Pre-operative clearance 01/26/2020 4:17 PM EDT [facility] [place] [place] Procedure on tissue specimen Tissue Exam Pathology and Cytology STAT Once for 1 Occurrences starting 02/22/2019 [facility] Comment on above: Once for 1 Occurrenc es starting 02/22/2019 Payers Date Payer Category Payer Unknown [employer] PPO xxxxxxxxxxxx 2018-Present [id number] 2018 Unknown [employer] PPO [id number] 2018-Present [id number] 1966 Unknown [id number] 2.840.1.774610.3.579.2.903 1966 Unknown [id number] 2.16840.1.791759.3.579.2.903 1966 Unknown [id number] 2.16840.1.553604.3.579.2.903 1966 Unknown [id number] 2.840.1.963162.3.579.2.903 1966 Unknown [id number] 2.840.1.680238.3.579.2.903 1966 Unknown [id number] 2.16840.1.445904.3.579.2.900 1966 Unknown [id number] 2.16840.1.583882.3.579.2.174 1966 Unknown [id number] 2.16840.1.731123.3.579.2.174 1966 Unknown [id number] 2.16840.1.545957.3.579.2.174 1966 Unknown [id number] 2.16.840.1.048967.3.579.2.174 1966 Unknown [id number] 2.16.840.1.247643.3.579.2.174 1966 Unknown [id number] 2.16.840.1.199695.3.579.2.174 1966 Unknown [id number] 2.16.840.1.970288.3.579.2.174 1966 Unknown [id number] 2.16.840.1.422685.3.579.2.174 1966 Unknown [id number] 2.16.840.1.818234.3.579.2. 1966 Unknown [id number] 2.16.840.1.837935.3.579.2. 1966 Unknown [id number] 2.16840.1.569512.3.579.2. 1966 Unknown [id number] 2.16.840.1.703430.3.579.2. 1966 Unknown [id number] 2.16840.1.607265.3.579.2. 1966 Unknown [id number] 2.16.840.1.230566.3.579.2. 1966 Unknown [id number] 2.16840.1.713782.3.579.2. 1966 Unknown [id number] 2.16.840.1.775395.3.579.2.174 1966 Unknown [id number] 2.16.840.1.916289.3.579.2. 1966 Unknown [id number] 2.16.840.1.776461.3.579.2. 1966 Unknown [id number] 2.16.840.1.824424.3.579.2. 1966 Unknown [id number] 2.16.840.1.959085.3.579.2.174 1966 Unknown [id number] 2.16.840.1.599470.3.579.2.174 1966 Unknown [id number] 2.16.840.1.293205.3.579.2.174 1966 Unknown [id number] 2.16.840.1.612196.3.579.2. 1966 Unknown [id number] 2.16.840.1.260184.3.579.2.174 1966 Unknown [id number] 2.16.840.1.396037.3.579.2.174 1966 Unknown [id number] 2.16.840.1.941144.3.579.2.174 1966 Unknown [id number] 2.16.840.1.899525.3.579.2.174 1966 Unknown [id number] 2.16.840.1.049129.3.579.2.174 1966 Unknown [id number] 2.16.840.1.461491.3.579.2.593 1966 Unknown [id number] 2.16.840.1.884119.3.579.2.593 1959 Unknown [id number] Social History Date Type Detail Facility Tobacco smoking stat [facility] Unknown if ever smoked [facility] Sex Assigned At Not on file [facility] Start: 02-23-2019 End: 01-26-2020 Tobacco smoking status MDIS Never smoker [place], [place] Start: 02-23-2019 End: 01-26-2020 Tobacco use and exposure [facility] Start: 02-23-2019 End: 01-26-2020 Alcohol intake Current drinker of alcohol (finding) [place], [place] Start: 01-26-2020 History SDOH Financial 5 [place] Start: 01-26-2020 History SDOH Food Worry 1 [place] Start: 01-26-2020 History SDOH Transpo rt Med 2 [place] Start: 01-26-2020 Alcohol Comment twice a month [place] Start: 02-22-2019 Alcohol Comment 1 per month [facility] Assessments Diagnosis Family history of lung cancer Family history of malignant neoplasm of trachea, bronchus, and lung Diagnosis Screening for hyperlipidemia Screening for lipoid disorders Pre-operative clearance Preoperative examination, unspecified Diagnosis Pre-operative clearance Preoperative examination, unspecified Diagnosis Acute post-operative pain- Primary Diagnosis Family history of lung cancer Family history of malignant neoplasm of trachea, bronchus, and lung Diagnosis Abdominal pain, right upper quadrant Diagnosis Pre-operative clearance Preoperative examination, unspecified Advance Directives No Advanced Directives Records FoundDocuments on File Type Date Recorded Patient Relief Master Expl anation Advance Directives and Livin g Will 02/21/2019 6:46 AM Documents on File Type Date Recorded Patient Relief Master Expl anation ACP-Advance Directive ACP-Power of Wind 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 Documents on File Type Date Recorded Patient Relief Master Expl anation Advance Directives and Livin g Will 02/22/2019 10:52 AM Latest Code Status on File Code Status Date Activated Date Inactivated Comments Full Code 02/22/2019 5:48 PM Documents on File Type Date Recorded Patient Relief Master Expl anation Advance Directives and Livin g Will 02/21/2019 6:46 AM Documents on File Type Date Recorded Patient Relief Master Expl anation Advance Directives and Livin g Will 02/18/2019 6:46 AM Documents on File Type Date Recorded Patient Relief Master Expl anation Advance Directives and Livin g Will 02/22/2019 10:52 AM Latest Code Status on File Code Status Date Activated Date Inactivated Comments Full Code 02/22/2019 5:48 PM Documents on File Type Date Recorded Patient Relief Master Expl anation ACP-Advance Directive ACP-Power of Wind 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 James Marie Referral Date : 03/05/20 Diagnosis: Strain of L Achilles tendon, Achilles Tendonitis Treatment Diagnosis: Gait ataxia s/p L Achilles Repair Onset Date: 02/07/20 PT Insurance Information: [employer] [place] Total # of Visits Approved: 12 Per Physician Order Total # of Visits to Date: 1 No Show: 0 Canceled Appointment: 0 Subjective Additional Pertinent Hx: Pt reports that end of September, noted a bump on her achilles, remained active,the bump continued to increase in size. Pt then went to Dr Rodney but had to wait a month, no change after 2 visits. Pt went to [place] and had a second opinion, had MRI pt had a ruptured tendon of her ankle. Pt now has Dr Pham at [facility]. Pt reports prior to sx pain was so severe she could barely tolerate touch. Pt reports that she then had sx Feb was completed as out patient. Pt was casted post op. Pt reports he took a tendon from great toe and moved it to Achilles. 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 Objective Observation/Palpation Posture: Fair Strength LLE Comment: N/T due to protocol AROM LLE (degrees) LLE General AROM: Great Toe 80deg L Ankle Dorsiflexion 0-20: 50degFN AROM LLE (degrees) LLE General AROM: Great Toe 80deg L Ankle Dorsiflexion 0-20: 50degFN PROM LLE (degrees) L Ankle Dorsiflexion 0-20: 15degFN after PROM Assessment Body structures, Functions, Activity limitations: Decreased functional mobility , Decreased ADL status, Decreased ROM, Decreased strength, Decreased endurance, Decreased balance, Decreased sensation,Decreased high-level IADLs Assessment: Pt to benefit from ther ex for ROM and per protocol strengthening. Pt to also benefit from gait training when cleared for WB. Pt to benefit from Manual therapy for tissue and scar mobility, and joint mobility PRN. Prognosis: Good Decision Making: Medium Complexity Exam: LEFS= Clinical Presentation: Evolving The Following Comorbities will impact the patient s progression and Plan of Care: Previous Orthopedic Injury/Surgery and WB Restrictions Activity Tolerance: Patient Tolerated treatment well Education: POC Barriers to Learning: None Goals Short term goals Time Frame for Short term goals: 6 visits Short term goal 1: Pt to report independence and compliance with HEP for DF ROM Short term goal 2: Pt to have PROM DF 10deg skilled nursing goals Time Frame for skilled nursing goals : 12 visits skilled nursing goal 1: Pt to score >35/80 on LEFS to improve ADLs 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 Patient's Goal: Patient goals : Be able to walk and return to work Dec Timed Code Treatment Minutes: 0 Minutes Total Treatment Time: 55 Time In: 1035 Time Out: 1130 Diane Hargrove, PT Date: 03/06/2020 documented in this encounter* Breanna Cisse - 03/08/2020 10:30 AM EST [facility] Daily Note Date: 03/08/2020 Patient Name: Alvin Garcia : 1965 (54 y.o.) Referring Practitioner: Dr. James Marie Referral Date : 03/05/20 Diagnosis: Strain of L Achilles tendon, Achilles Tendonitis Treatment Diagnosis: Gait ataxia s/p L Achilles Repair Onset Date: 02/07/20 PT Insurance Information: [employer] [place] Total # of Visits Approved: 12 Per Physician Order Total # of Visits to Date: 2 No Show: 0 Canceled Appointment: 0 Pre-Treatment Pain: 0/10 Assessment Assessment: Initiated manual therapy as outlined for tissue mobility and ankle flexibility. Good cameron to session. Will cont. 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 Post Treatment Pain: 0/10 Time In: 1035 Time Out : 1105 Timed Code Treatment Minutes: 30 Minutes Total Treatment Time: 30 Minutes Breanna Cisse RECORDS CLERK Date: 03/08/2020 documented in this encounter* Breanna Cisse - 03/13/2020 1:45 PM EST [facility] Daily Note Date: 03/13/2020 Patient Name: Alvin Garcia : 1965 (54 y.o.) Referring Practitioner: Dr. James Marie Referral Date : 03/05/20 Diagnosis: Strain of L Achilles tendon, Achilles Tendonitis Treatment Diagnosis: Gait ataxia s/p L Achilles Repair Onset Date: 02/07/20 PT Insurance Information: [employer] [place] Total # of Visits Approved: 12 Per Physician Order Total # of Visits to Date: 3 No Show: 0 Canceled Appointment: 0 Pre-Treatment Pain: 0/10 Assessment Assessment: Pt reports good cameron to last session. She reports she only wears boot when coming to therapy, not at home as she was advised was acceptable by her Dr. Performed manual therapy as outlined for tissue and ankle mobility. PROM to 1 deg FN. Will cont. 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 Post Treatment Pain: 0/10 Time In: 1340 Time Out : 1415 Timed Code Treatment Minutes: 35 Minutes Total Treatment Time: 35 Minutes Breanna Cisse RECORDS CLERK Date: 03/13/2020 documented in this encounter* Diane Hargrove, PT - 03/16/2020 1:45 PM EST [facility] Daily Note Date: 03/16/2020 Patient Name: Alvin Garcia : 1965 (54 y.o.) Referring Practitioner: Dr. James Marie Referral Date : 03/05/20 Diagnosis: Strain of L Achilles tendon, Achilles Tendonitis Treatment Diagnosis: Gait ataxia s/p L Achilles Repair Onset Date: 02/07/20 PT Insurance Information: [employer] Total # of Visits Approved: 12 Per Physician Order Total # of Visits to Date: 4 No Show: 0 Canceled Appointment: 0 Pre-Treatment Pain: 0/10 Assessment Assessment: 1 wedge removed from boot this date. Pt PROM DF 1deg. Pt reports no pain other than discomfort in her arch, palpable knot in middle of arch. Pt eager to followup with physician and get WB. Chart Reviewed: Yes Plan Plan: Continue with current plan Exercises/Modalities/Manual: See DocFlow Sheet Education: Removed 1 layer of wedge in boot. 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 Post Treatment Pain: 0/10 Time In: 1345 Time Out: 1415 Timed Code Treatment Minutes: 30 Minutes Total Treatment Time: 30 Minutes Diane Hargrove PT Date: 03/16/2020 documented in this encounter* Andrade Mohini, PT - 03/19/2020 1:45 PM EST [facility] Daily Note Date: 03/19/2020 Patient Name: Alvin Garcia : 1965 (54 y.o.) Referring Practitioner: Dr. James Marie Referral Date : 03/05/20 Diagnosis: Strain of L Achilles tendon, Achilles Tendonitis Treatment Diagnosis: Gait ataxia s/p L Achilles Repair Onset Date: 02/07/20 PT Insurance Information: [employer] Total # of Visits Approved: 12 Per Physician Order Total # of Visits to Date: 5 No Show: 0 Canceled Appointment: 0 Pre-Treatment Pain: 0/10 Assessment Assessment: Patient reports no pain at rest/NWB. Tenderness with palpation of mid arch. PROM DF 0-1deg. Educated on towel stretch for gentle DF ROM. appt 04/02/20 Chart Reviewed: Yes Plan Plan: Continue with current plan Exercises/Modalities/Manual: See DocFlow Sheet Education: Towel stretch for DF Barriers to Learning: None Goals (Total # of Visits to Date: 5) Short Term Goals - Time Frame for Short term goals: 6 visits Short term goal 1: Pt to report independence and compliance with HEP for DF ROM Short term goal 2: Pt to have PROM DF 10deg [facility] Goals - Time Frame for skilled nursing goals : 12 visits skilled nursing goal 1: Pt to score >35/80 on LEFS to improve ADLs skilled nursing goal 2: Pt to amb without AD x100ft without deviations skilled nursing goal 3: Pt to maintain SLS 10sec 2:3 trials to improve stair safety. Post Treatment Pain: 0/10 Time In: 1345 Time Out : 1420 Timed Code Treatment Minutes: 30 Minutes Total Treatment Time: 35 Minutes MOHINI PÉREZ PT Date: 03/19/2020 documented in this encounter* Diane Hargrove, PT - 03/26/2020 11:00 AM EST [facility] Progress Report Date: 03/26/2020 Patient: Alvin Garcia : 1965 Referring Practitioner: Dr. James Marie Referral Date : 03/05/20 Diagnosis: Strain of L Achilles tendon, Achilles Tendonitis Treatment Diagnosis: Gait ataxia s/p L Achilles Repair Onset Date: 02/07/20 PT Insurance Information: [employer] [place] Total # of Visits Approved: 12 Per Physician Order Total # of Visits to Date: 7 No Show: 0 Canceled Appointment: 0 Assessment Pt compliant with vitamin E to incision areas that are healed and dry skin. Pt continues to presentwith quarter sized palpable knot in her arch, tender to palpation. This area reduces with manual therapy but then returns. Pt has also been massaging this area with little change noted. Pt ROM progressing well. Great Toe Ext=90deg, AROM: DF=2degFN; PROM: DF=7deg premanual, 9deg post manual. AROM Plantar flexion-40deg Pt continues to be NWB per orders and has last remaining wedge still in boot, removal to be on 04/02/20. 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 Diane Hargrove Date: 03/26/2020 * Diane Hargrove, PT - 03/26/2020 11:00 AM EST [facility] Daily Note Date: 03/26/2020 Patient Name: Alvin Garcia : 1965 (54 y.o.) Referring Practitioner: Dr. James Marie Referral Date : 03/05/20 Diagnosis: Strain of L Achilles tendon, Achilles Tendonitis Treatment Diagnosis: Gait ataxia s/p L Achilles Repair Onset Date: 02/07/20 PT Insurance Information: [employer] [place] Total # of Visits Approved: 12 Per Physician Order Total # of Visits to Date: 7 No Show: 0 Canceled Appointment: 0 Pre-Treatment Pain: 0/10 Subjective: Apr 02 Dr appt Assessment Assessment: Pt compliant with vitamin E to incision areas that are healed and dry skin. Pt continues to present with quarter sized palpable knot in her arch, tender to palpation. This area reduces with manual therapy but then returns. Pt has also been massaging this area with little change noted. Pt ROM progressing well. Great Toe Ext=90deg, AROM: DF=2degFN; PROM: DF=7deg premanual, 9deg post manual. AROM Plantar flexion-40deg Pt continues to be NWB per orders and has last remaining wedge stillin boot, removal to be on 04/02/20. Will await WB orders Chart Reviewed: Yes Plan Plan: Continue with current plan Exercises/Modalities/Manual: See DocFlow Sheet Education: Cont with remaining wedge until followup and await WB orders. Pt instructed if given WB to start with B/L Axillary crutches and return gradually. 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 Post Treatment Pain: 0/10 Time In: 1109 Time Out: 1149 Timed Code Treatment Minutes: 40 Minutes Total Treatment Time: 40 Minutes Diane Hargrove, PT Date: 03/26/2020 documented in this encounter* Breanna Cisse - 03/27/2020 9:00 AM EST [facility] Daily Note Date: 03/27/2020 Patient Name: Alvin Garcia : 1965 (54 y.o.) Referring Practitioner: Dr. James Marie Referral Date : 03/05/20 Diagnosis: Strain of L Achilles tendon, Achilles Tendonitis Treatment Diagnosis: Gait ataxia s/p L Achilles Repair Onset Date: 02/07/20 PT Insurance Information: [employer] Total # of Visits Approved: 12 Per Physician Order Total # of Visits to Date: 8 No Show: 0 Canceled Appointment: 0 Pre-Treatment Pain: 0/10 Subjective: Apr 02 Dr appt Assessment Assessment: Pt only has pain if she accidentally puts foot down. Performed ex as outlined followed by [place] techniques to foot/ankle/calf/scar. Self stretches with towel before manual and tband strength after. PROM to 9 deg DF. Will progress when WB progresses when Dr orders. 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 Post Treatment Pain: 0/10 Time In: 0900 Time Out : 0938 Timed Code Treatment Minutes: 38 Minutes Total Treatment Time: 38 Minutes Breanna Cisse RECORDS CLERK Date: 03/27/2020 documented in this encounter* Diane Hargrove, PT - 04/10/2020 3:45 PM EST [facility] Daily Note Date: 04/10/2020 Patient Name: Alvin Garcia : 1965 (54 y.o.) Referring Practitioner: Dr. James Marie Referral Date : 03/05/20 Diagnosis: Strain of L Achilles tendon, Achilles Tendonitis Treatment Diagnosis: Gait ataxia s/p L Achilles Repair Onset Date: 02/07/20 PT Insurance Information: [employer] Total # of Visits Approved: 17 Per Physician Order Total # of Visits to Date: 11 No Show: 0 Canceled Appointment: 0 Plan of Care/Certification Expiration Date: 04/30/20 Pre-Treatment Pain: 310 Assessment Assessment: Wedge removed from boot this date. Pt reports amb with 1 axillary crutch the last 2 days at work wiith good cameron. Pt reports noted swelling after work, wearing compression sock again this date. Pt incision visualized, area of concern has diffuse red but no temp. Pt has no open areas of points of concern. Attempted IFC/HP to foot this date due to persistant pain in arch and heel. No overall change after stim noted. Will cont as cameron. 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 Post Treatment Pain: 07/11 Time In: 1540 Time Out: 1630 Timed Code Treatment Minutes: 50 Minutes Total Treatment Time: 50 Minutes Diane Hargrove, PT Date: 04/10/2020 documented in this encounter* Diane Hargrove, PT - 04/19/2020 3:00 PM EST [facility] Progress Report Date: 04/19/2020 Patient: Alvin Garcia : 1965 Referring Practitioner: Dr. James Marie Referral Date : 03/05/20 Diagnosis: Strain of L Achilles tendon, Achilles Tendonitis Treatment Diagnosis: Gait ataxia s/p L Achilles Repair Onset Date: 02/07/20 PT Insurance Information: [employer] Total # of Visits Approved: 17 Per Physician Order Total # of Visits to Date: 14 No Show: 0 Canceled Appointment: 0 Assessment Pt reports wearing shoe at home mostly, still in boot at work. Pt reports after last session left in tennis shoe, wore it to [employer] pain was up to 7-8/10 after store. Pt reports unable to wear tennis shoe at work due to no time to change to and from boot. Pt reports only using scooter for night trips to bathroom. Initiated Talar mobs this date due to pt c/o anterior ankle discomfort with decending stairs and with increased stride length. Pt reports 5th met pain persists and plans to have physician evaluate this. Pt SLS 7sec at best. L ankle AAROM DF= 9 deg. Pt with decreased step length when amb in tennis shoe with slow sommer. Pt likely to benefit from additional PT for gait training and joint mobility. 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 Diane Hargrove Date: 04/19/2020 * Beena, Diane Givens, PT - 04/19/2020 3:00 PM EST [facility] Daily Note Date: 04/19/2020 Patient Name: Alvin Garcia : 1965 (54 y.o.) Referring Practitioner: Dr. James Marie Referral Date : 03/05/20 Diagnosis: Strain of L Achilles tendon, Achilles Tendonitis Treatment Diagnosis: Gait ataxia s/p L Achilles Repair Onset Date: 02/07/20 PT Insurance Information: [employer] Total # of Visits Approved: 17 Per Physician Order Total # of Visits to Date: 14 No Show: 0 Canceled Appointment: 0 Plan of Care/Certification Expiration Date: 04/30/20 Pre-Treatment Pain: 1/10 Assessment Assessment: Pt reports wearing shoe at home mostly. Pt reports after last session wore it to [employer] and was quite sore after. Pt reports unable to wear tennis shoe at work due to no time to change.Pt reports only using scooter for night trips to bathroom. Pt reports after shopping in her tennis shoe pain was up to 7-8/10. Initiated Talar mobs this date due to pt c/o anterior ankle discomfort with decending stairs and with increased stride length. Pt reports 5th met pain persists and plans tohave physician evaluate this. Pt SLS 7sec at best. Pt with decreased step length when amb in tennisshoe with slow sommer. Pt likely to benefit from additional PT for gait training and joint mobility. 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 Post Treatment Pain: 07/11 Time In: 1502 Time Out : 1542 Timed Code Treatment Minutes: 40 Minutes Total Treatment Time: 40 Minutes Diane Hargrove, PT Date: 04/19/2020 documented in this encounter* Oh Elizabeth, RECORDS CLERK - 04/24/2020 9:00 AM EST [facility] Daily Note Date: 04/24/2020 Patient Name: Alvin Garcia : 1965 (54 y.o.) Referring Practitioner: Dr. James Marie Referral Date : 03/05/20 Diagnosis: Strain of L Achilles tendon, Achilles Tendonitis Treatment Diagnosis: Gait ataxia s/p L Achilles Repair Onset Date: 02/07/20 PT Insurance Information: [employer] Total # of Visits Approved: 17 Per Physician Order Total # of Visits to Date: 15 No Show: 0 Canceled Appointment: 0 Plan of Care/Certification Expiration Date: 04/30/20 Pre-Treatment Pain: 0/10 Assessment Assessment: Patient reports wearing shoe majority of the time now. She followed up with Dr. Marie's PA yesterday and he said patient is doing really well. Regarding patient's 5th metatarsal pain he said the x-rays look great and thinks maybe the pain is from the way she is walking. Patient asked about walking barefoot and said she can if she wears ASO brace. She also asked about bump on her arch and PA said it is probably plantar fasciitis. Continued with exercises as outlined followed by posterior talar mob. Post session patient denies pain. 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 Post Treatment Pain: 0/10 Time In: 0902 Time Out : 09 Timed Code Treatment Minutes: 39 Minutes Total Treatment Time: 39 Minutes Oh Elizabeth PTA Date: 04/24/2020 documented in this encounter* Oh Elizabeth, CARLENE - 04/25/2020 9:00 AM EST [facility] Daily Note Date: 04/25/2020 Patient Name: Alvin Garcia : 1965 (54 y.o.) Referring Practitioner: Dr. James Marie Referral Date : 03/05/20 Diagnosis: Strain of L Achilles tendon, Achilles Tendonitis Treatment Diagnosis: Gait ataxia s/p L Achilles Repair Onset Date: 02/07/20 PT Insurance Information: [employer] Total # of Visits Approved: 17 Per Physician Order Total # of Visits to Date: 16 No Show: 0 Canceled Appointment: 0 Plan of Care/Certification Expiration Date: 04/30/20 Pre-Treatment Pain: 0/10 Assessment Assessment: Patient reports no ankle pain this morning. She states she did quite a bit of standing yesterday while baking cookies and was sore and a little swollen this last night, but nothing too bad. Completed exercises as outlined with good tolerance from patient. She wore ASO brace throughout session today. L ankle PROM DF = 12 deg. 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 Post Treatment Pain: 0/10 Time In: 0900 Time Out : 0945 Timed Code Treatment Minutes: 45 Minutes Total Treatment Time: 45 Minutes Oh Elizabeth PTA Date: 04/25/2020 documented in this encounter* Oh Elizabeth PTA - 05/01/2020 9:30 AM EST [facility] Daily Note Date: 05/01/2020 Patient Name: Alvin Garcia : 1965 (54 y.o.) Referring Practitioner: Dr. James Marie Referral Date : 03/05/20 Diagnosis: Strain of L Achilles tendon, Achilles Tendonitis Treatment Diagnosis: Gait ataxia s/p L Achilles Repair Onset Date: 02/07/20 PT Insurance Information: [employer] Total # of Visits Approved: 17 Per Physician Order Total # of Visits to Date: 17 No Show: 0 Canceled Appointment: 0 Plan of Care/Certification Expiration Date: 04/30/20 Pre-Treatment Pain: 0/10 Assessment Assessment: Patient denies ankle pain this morning. She states at the worst her ankle pain main increase to a 3-4/10, but overall is gradually improving when walking. Completed exercises an manual asoutlined with good tolerance from patient. She was able to hold L SLS on floor x10 sec 2:3 trials. Following session patient denies pain. Chart Reviewed: Yes Plan Plan: Continue with current plan Exercises/Modalities/Manual: See DocFlow Sheet Education: Barriers to Learning: None Goals (Total # of Visits to Date: 17) Short Term Goals - Time Frame for Short term goals: STGs=LTGs Aerial Sprayer Goals - Time Frame for buttermilk drier operator goals : 17 visits skilled nursing goal 1: Pt to score >35/80 on LEFS to improve ADLs - NOT MET buttermilk drier operator goal 2: Pt to amb without AD x100ft without deviations - NOT MET skilled nursing goal 3: Pt to maintain SLS 10sec 2:3 trials to improve stair safety. - NOT MET Post Treatment Pain: 0/10 Time In: 0935 Time Out : 1015 Timed Code Treatment Minutes: 40 Minutes Total Treatment Time: 40 Minutes Oh Elizabeth, RECORDS CLERK Date: 05/01/2020 documented in this encounter* Diane Hargrove, PT - 05/03/2020 9:00 AM EST [facility] Daily Note Date: 05/03/2020 Patient Name: Alvin Garcia : 1965 (54 y.o.) Referring Practitioner: Dr. James Marie Referral Date : 03/05/20 Diagnosis: Strain of L Achilles tendon, Achilles Tendonitis Treatment Diagnosis: Gait ataxia s/p L Achilles Repair Onset Date: 02/07/20 PT Insurance Information: [employer] Total # of Visits Approved: 24 Per Physician Order Total # of Visits to Date: 18 No Show: 0 Canceled Appointment: 0 Plan of Care/Certification Expiration Date: 04/30/20 Pre-Treatment Pain: 0/10 Assessment Assessment: Pt continues to demonstrate minimal limp during swing phase of R LE(stance of L). Initiated gait drills today with good cameron. Prior to ther ex measured AROM DF=7deg and PROM DF=11deg with knee ext and 13deg with knee flexion. Pt balance is improving but still a challenge and pt continue to demonstrate increased WB on lateral aspect of foot. Persistant knot in arch noted also. Pt with scar adhesions at distal end of scar which pt educated to mobilize this area. Plan to recert x4 wks (7visits) to improve gait and balance. 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 Post Treatment Pain: 0/10 Time In: 0903 Time Out : 0943 Timed Code Treatment Minutes: 40 Minutes Total Treatment Time: 40 Minutes Diane Hargrove, PT Date: 05/03/2020 documented in this encounter* Oh Elizabeth, RECORDS CLERK - 05/08/2020 3:15 PM EST [facility] Daily Note Date: 05/08/2020 Patient Name: Alvin Garcia : 1965 (54 y.o.) Referring Practitioner: Dr. James Marie Referral Date : 03/05/20 Diagnosis: Strain of L Achilles tendon, Achilles Tendonitis Treatment Diagnosis: Gait ataxia s/p L Achilles Repair Onset Date: 02/07/20 PT Insurance Information: [employer] Total # of Visits Approved: 24 Per Physician Order Total # of Visits to Date: 19 No Show: 0 Canceled Appointment: 0 Pre-Treatment Pain: 0/10 Assessment Assessment: Patient denies ankle pain at the moment, but still notes some tenderness on the outsideof her foot at times when she walks. She still ambulates with minor limp, but is slightly improving. Completed exercises as outlined with good tolerance. She was able to hold L SLS x10 1:3 trials on a erofoam today. Patient is scheduled all the way out for remaining therapy sessions. Will continue to progress gait pattern. 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 Post Treatment Pain: 0/10 Time In: 1520 Time Out : 1600 Timed Code Treatment Minutes: 40 Minutes Total Treatment Time: 40 Minutes Oh Elizabeth PTA Date: 05/08/2020 documented in this encounter* Diane Hargrove, PT - 05/10/2020 3:00 PM EST [facility] Daily Note Date: 05/10/2020 Patient Name: Alvin Garcia : 1965 (54 y.o.) Referring Practitioner: Dr. James Marie Referral Date : 03/05/20 Diagnosis: Strain of L Achilles tendon, Achilles Tendonitis Treatment Diagnosis: Gait ataxia s/p L Achilles Repair Onset Date: 02/07/20 PT Insurance Information: [employer] Total # of Visits Approved: 24 Per Physician Order Total # of Visits to Date: 20 No Show: 0 Canceled Appointment: 0 Pre-Treatment Pain: 07/11 Assessment Assessment: Pt reports that her lateral foot pain persists as does the discomfort in the center of her arch. May try lodi taping to see if pain is reduced. Pt with improved gait this date, min deviations at end of session due to increased soreness. Pt educated to try foot soak tomorrow evening and see if pain decreases following but to monitor swelling. Pt reports wearing compression sock this date with increased lateral foot soreness 07/11. 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 Post Treatment Pain: 08/11 Time In: 1506 Time Out: 1552 Timed Code Treatment Minutes: 46 Minutes Total Treatment Time: 46 Minutes Diane Hargrove PT Date: 05/10/2020 documented in this encounter* Diane Hargrove, PT - 05/15/2020 3:15 PM EST [facility] Daily Note Date: 05/15/2020 Patient Name: Alvin Garcia : 1965 (54 y.o.) Referring Practitioner: Dr. James Marie Referral Date : 03/05/20 Diagnosis: Strain of L Achilles tendon, Achilles Tendonitis Treatment Diagnosis: Gait ataxia s/p L Achilles Repair Onset Date: 02/07/20 PT Insurance Information: [employer] Total # of Visits Approved: 24 Per Physician Order Total # of Visits to Date: 21 No Show: 0 Canceled Appointment: 0 Pre-Treatment Pain: 07/11 Assessment Assessment: Pt reports that her lateral foot pain persists as does the discomfort in the center of her arch. Lulu Taping initiated this date with improved activity cameron and amb improvement also. Pt able to demonstrate less lateral shift and improve toe off during gait drills with lodi tape. Pt educated that OTC arch support may be appropriate. Pt instructed to remove tape tomorrow evening if not sooner and monitor for skin reactions to tape. Pt still unable to complete S/L Heel raise due to painradiating up the 5th metatarsal. Post session pt report no pain in arch or lateral aspect of foot, pt will less pressure to lateral aspect of foot during gait also, will cont to monitor. Chart Reviewed: Yes Plan Plan: Continue with current plan Exercises/Modalities/Manual: See DocFlow Sheet Education: see assessment Barriers to Learning: None Goals (Total # of Visits to Date: 21) Short Term Goals - Time Frame for Short term goals: STGs=LTGs Aerial Sprayer Goals - Time Frame for buttermilk drier operator goals : 7 visits (Total 24) buttermilk drier operator goal 1: Pt to score >35/80 on LEFS to improve ADLs skilled nursing goal 2: Pt to amb without AD x100ft without deviations skilled nursing goal 3: Pt to maintain SLS 10sec 2:3 trials to improve stair safety. Post Treatment Pain: 0/10 Time In: 1520 Time Out: 1605 Timed Code Treatment Minutes: 45 Minutes Total Treatment Time: 45 Minutes Diane Hargrove, PT Date: 05/15/2020 documented in this encounter* Enrique Nj 05/17/2020 3:15 PM EST [facility] Daily Note Date: 05/17/2020 Patient Name: Alvin Garcia : 1965 (54 y.o.) Referring Practitioner: Dr. James Marie Referral Date : 03/05/20 Diagnosis: Strain of L Achilles tendon, Achilles Tendonitis Treatment Diagnosis: Gait ataxia s/p L Achilles Repair Onset Date: 02/07/20 PT Insurance Information: [employer] Total # of Visits Approved: 24 Per Physician Order Total # of Visits to Date: 22 No Show: 0 Canceled Appointment: 0 Pre-Treatment Pain: 3/10 Assessment Assessment: Pt's discomfort persists at the lateral and dorsal surface of the foot. She attempted to wear an ASO ankle brace today, but it had little relief. Pt instructed through exercises as noted.Attempted forward step downs off a 6 box and patient complians of stiffness at the midfoot. Forefoot and midfoot mobility was fine as checked manually with good mobility. Plan Plan: Continue with current plan Exercises/Modalities/Manual: See DocFlow Sheet Education: Attempted forward step downs, educated on tissue irritability from ASO brace Barriers to Learning: None Goals (Total # of Visits to Date: 22) Short Term Goals - Time Frame for Short term goals: STGs=LTGs [facility] Goals - Time Frame for buttermilk drier operator goals : 7 visits (Total 24) buttermilk drier operator goal 1: Pt to score >35/80 on LEFS to improve ADLs 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 Post Treatment Pain: 07/11 Time In: 1525 Time Out : 1605 Timed Code Treatment Minutes: 40 Minutes Total Treatment Time: 40 Minutes Enrique Nj, BRENDA /Directly Supervised byDiane Hargrove PT Date: 05/17/2020 documented in this encounter* Enrique Nj - 05/21/2020 8:45 AM EST [facility] Daily Note Date: 05/21/2020 Patient Name: Alvin Garcia : 1965 (54 y.o.) Referring Practitioner: Dr. James Marie Referral Date : 03/05/20 Diagnosis: Strain of L Achilles tendon, Achilles Tendonitis Treatment Diagnosis: Gait ataxia s/p L Achilles Repair Onset Date: 02/07/20 PT Insurance Information: [employer] Total # of Visits Approved: 24 Per Physician Order Total # of Visits to Date: 23 No Show: 0 Canceled Appointment: 0 Pre-Treatment Pain: 0/10 Assessment Assessment: Pt arrives wearing ASO brace and a bandage to help with irritation at the posterior ankle, reports it feels better with the brace and bandage. Pt issued gelcare patch for tissue protection and desenitization. Attempted forward step downs off 6 step with continued discomfort at dorsum of foot. Pt performs heel raises with lateral shift towards unaffected LE, educated to perform at home in front of a mirror for self monitoring of this deviation. Pt instructed to fill out LEFS and return the form at next session. Continue x1 visit and D/C to HEP. 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 drier operator goal 1: Pt to score >35/80 on LEFS to improve ADLs buttermilk drier operator goal 2: Pt to amb without AD x100ft without deviations- MET buttermilk drier operator goal 3: Pt to maintain SLS 10sec 2:3 trials to improve stair safety.- MET Post Treatment Pain: 0/10 Time In: 844 Time Out : 930 Timed Code Treatment Minutes: 46 Minutes Total Treatment Time: 46 Minutes BRENDA Dawson /Directly Supervised byDiane Hargrove, PT Date: 05/21/2020 documented in this encounter* Oh Elizabeth, CARLENE - 04/17/2020 3:15 PM EST [facility] Daily Note Date: 04/17/2020 Patient Name: Alvin Garcia : 1965 (54 y.o.) Referring Practitioner: Dr. James Marie Referral Date : 03/05/20 Diagnosis: Strain of L Achilles tendon, Achilles Tendonitis Treatment Diagnosis: Gait ataxia s/p L Achilles Repair Onset Date: 02/07/20 PT Insurance Information: [employer] Total # of Visits Approved: 17 Per Physician Order Total # of Visits to Date: 13 No Show: 0 Canceled Appointment: 0 Plan of Care/Certification Expiration Date: 04/30/20 Pre-Treatment Pain: 0/10 Assessment Assessment: Patient reports walking at work today with boot and no crutches all day today and yesterday. She plans to gradually wear shoe more each of the next few nights and then half days at work and Thursday. She still has difficulty descending stairs due to ankle mobility, but ascends with no issues. Progressed ankle stability exercises as outlined with good tolerance from patient. Following session patient states ankle is a little more sore than before therapy. 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 Post Treatment Pain: 06/13 Time In: 1520 Time Out : 1600 Timed Code Treatment Minutes: 40 Minutes Total Treatment Time: 40 Minutes Oh Elizabeth PTA Date: 04/17/2020 documented in this encounter* Diane Hargrove, PT - 04/05/2020 3:45 PM EST [facility] Daily Note Date: 04/05/2020 Patient Name: Alvin Garcia : 1965 (54 y.o.) Referring Practitioner: Dr. James Marie Referral Date : 03/05/20 Diagnosis: Strain of L Achilles tendon, Achilles Tendonitis Treatment Diagnosis: Gait ataxia s/p L Achilles Repair Onset Date: 02/07/20 PT Insurance Information: [employer] Total # of Visits Approved: 17 Per Physician Order Total # of Visits to Date: 10 No Show: 0 Canceled Appointment: 0 Plan of Care/Certification Expiration Date: 04/30/20 Pre-Treatment Pain: 09/10 Assessment Assessment: Completed session in tennis shoe this date. Pt report less discomfort in tennis shoe vsboot. Pt then donned boot and adjustments made to padding with improved cameron. Pt able to amb with 1 axillary crutch on R side with good cameron and min deviations including R lateral lean, pt amb with less deviation in shoe but not cleared for full day in tennis shoe until 04/16/.20. Pt reports decreased heel pain with modifications to boot. Pt reports scar area with potential stitch remains unchanged, reviewed if area opens pt is to call physican. Will cont to work toward amb goals as pt able to cameron and per instruction from physican. 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 Post Treatment Pain: 09/10 Time In: 1545 Time Out : 1637 Timed Code Treatment Minutes: 52 Minutes Total Treatment Time: 52 Minutes Diane Hargrove, COLLIN Date: 04/05/2020 documented in this encounter Discharge Instructions * Instructions* Mundo Simeon MD - 02/23/[address] Simeon (Hernia Repair/Gallbladder) [phone] No Lifting, no bending, no pushing May shower, No bath - may tub bathe starting in one month Briefs, no shorts Limit walking for 7-10 days Ice compress to operative site for 48 hours (4x daily for 30 minutes each time) Abdominal binder on SNUGLY when up and about Leave dressing on for 5 days, then may leave open to air Low fat diet Even minor surgery can cause swelling and injury to the tissue and lead to pain. It is important tokeep your pain level low. This will help you heal more quickly. Your pain level is too high if you cannot walk, talk or breath normally, or if you cannot rest. You need plenty of rest so your body can heal properly. At the same time, you need some activity to keep your body systems working properly. Be sure to take your pain medicine as directed. Pain medicine is not supposed to take all your pain away, but to make you able to walk, breathe and rest comfortably. Call your doctor if your pain has not lessened within one (1) hour of taking pain medicine. Take the medicine the doctor prescribes,or any over the counter pain medicine, except aspirin products. Anesthesia: If you were asleep for your anesthetic, or received any medicine to help you relax, it may stay in your body for about twenty four(24) hours. Even if you feel normal, it can affect your judgement. Do not drive or operate any hazardous machinery for twenty four hours. Do not drink alcohol. You should not smoke, but if you do , be very careful of cigarettes and matches so that you don'tstart a fire. Smoke only in the presence of a responsible adult and do not smoke in bed , on the couch, or in a comfortable chair. After you get home: Unless you have been instructed otherwise, you may resume your normal diet, activity, and medicines. Keep your dressing on, clean and dry until you see your doctor has told you otherwise. If you had an IV ( Intravenous) The sight may be slightly sore. It should get better in thenex day or two. You may apply a warm washcloth to the dressing site if you wish. If it is getting worse, reddened or painful, it may be infected, so call the doctor. Call the surgeon if: 1. You have too much pain, persistent nausea or vomiting. 2. You have signs of infection such as fever, chills, or increased redness and swelling, or pus-like drainage from the wound. 3. You have increased bleeding or your wound opens up. 4. Your fingers or toes become bluish or very pale. IF YOU HAVE A PROBLEM OF A MEDICAL NATURE, CALL YOUR DOCTOR/EMERGENCY ROOM. [facility] EMERGENCY ROOM [phone] Make a follow-up appointment with your surgeon. documented in this encounter Reason for Referral Status Reason Specialty Diagnoses / Procedures Referre d By Contact Referred To Contact Closed Cardiology Diagnoses Family history of lung cancer Procedures ECG 12 Lead Mundo Simeon MD [address] [address] Status Reason Specialty Diagnoses / Procedures Referred By Contact Referred To Contact Pending Review Radiology Diagnoses Abdominal pain, right upper quadrant Procedures US Abdomen Limited Study Mundo Simeon MD [address] [address] Status Reason Specialty Diagnoses / Procedures Referre d By Contact Referred To Contact Open Cardiology Diagnoses Pre-operative clearance Procedures EKG 12 lead Sixto Delgadillo, DO [address] [place] [address] Additional Source Comments INFORMATION SOURCE (unrecogn ized section and content) DATE CREATED AUTHOR 03/10/2019 [facility] DATE CREATED AUTHOR AUTHOR'S ORGANIZ ATION 02/04/2020 [facility] DATE CREATED AUTHOR AUTHOR'S ORGANIZ ATION 05/24/[address] [facility] DATE CREATED AUTHOR AUTHOR'S ORGANIZ ATION 08/28/2022 [facility] Reason for Visit (unrecogniz ed section and content) Status Reason Specialty Diagnoses / Procedures Referre d By Contact Referred To Contact Diagnoses NEEDS DIAGNOSIS Procedures CHOLECYSTECTOMY LAPAROSCOPIC Status Reason Specialty Diagnoses / Procedures Referre d By Contact Referred To Contact Closed Cardiology Diagnoses Family history of lung cancer Procedures ECG 12 Lead Mundo Simeon MD [address] [address] Status Reason Specialty Diagnoses / Procedures Referred By Contact Referred To Contact Pending Review Radiology Diagnoses Abdominal pain, right upper quadrant Procedures US Abdomen Limited Study Mundo Simeon MD [address] [address] Aleena Gilbert RN - 02/22/2019 1:55 PM EDAleena Mendes RN - 02/22/2019 1:46 PM EDT Nursing Notes (unrecognized section and content) Up to bathroom voided qs returned to cart callight in reach Talking with family callight in reACH updated on surgery time. documented in this encounter Plan of Care - Sonya Centeno RN - 02/23/2019 1:53 PM EDTPlan of Nidia - Breanna Martinez RN - 02/22/2019 11:31 PM EDTPlan of Nidia - Alanna Cartwright RN - 02/22/2019 6:47 PM EDT Miscellaneous Notes (unrecog nized section and content) POC is to DC Pt home today. Plan of care reviewed and continued. UPDATED ON POC. ANSWERED ALL QUESTIONS. Problem: Actual or potential alteration in health Goal: Absence of healthcare acquired conditions Outcome: Partially Met Goal: Knowledge of Interdisciplinary Plan of Care Outcome: Partially Met Goal: Knowledge of Enviroment Outcome: Partially Met Brief Post Operative Note Patient Name: Alvin Garcia : 1965 (53 y.o.) Date of Service: 02/22/2019 [facility]: [id number] Procedure(s): CHOLECYSTECTOMY LAPAROSCOPIC Pre-Operative Diagnoses: * ACUTE ON CHRONIC CHOLECYSTITIS WITH CHOLELITHIASIS Post-Operative Diagnoses: ACUTE ON CHRONIC CHOLECYSTITIS WITH CHOLELITHIASIS; FATTY LIVER Surgeon(s) and Role: * Mundo Simeon MD - Primary Anesthesiologist: Rajat Becerra MD Armhole Presser: Kimberly Anne RN Scrub Person: Shaila Starkey RN; Anna Brown RN Scrub Person Orientee: Antonia Painter RN Operative findings: SAME POST OP Intra and immediate post-operative complications: NONE Type of anesthesia used: General Estimated blood loss: 25 mL Estimated urine output: Refer to surgical log Specimen(s): ID Type Source Tests Collected by Time Destination A : Tissue Gallbladder TISSUE EXAM Mundo Simeon MD 02/22/2019 [id number] Implant(s): * No implants in log * Drain(s): * No LDAs found * Wound(s): Incision 02/22/19 Abdomen (Active) Mundo Simeon MD 02/22/2019 5:34 PM documented in this encounter FOR RECORDS PERTAINING TO PATIENTS WHO ARE OR HAVE BEEN ENROLLED IN A CHEMICAL DEPENDENCY/SUBSTANCEABUSE PROGRAM, SOME INFORMATION MAY BE OMITTED. This clinical summary was aggregated from multiple sources. Caution should be exercised in using it in the provision of clinical care. This summary normalizes information from multiple sources, and as a consequence, information in this document may materially change the coding, format and clinical context of patient data. In addition, data may be omitted in some cases. CLINICAL DECISIONS SHOULD BE BASED ON THE PRIMARY CLINICAL RECORDS. [facility] [employer] [facility]. provides no warranty or guarantee of the accuracy or completeness of information in this document.
== END 2023-06-18 13:54 | disposition home or self-care (01) ==
LOC: MAMMO 13:53
PROVIDERS: Visit Provider Obstetrics & Gynecology
DX: N63.20 Unspecified lump in the left breast, unspecified quadrant (principal); R92.8 Other abnormal and inconclusive findings on diagnostic imaging of breast; Z80.1 Family history of malignant neoplasm of trachea, bronchus and lung
CPT/HCPCS: 76642; 77065

== ENCOUNTER 2023-06-26 07:49 | Day surgery (SDC) | payer OTHER, SELFPAY ==
--- OUTSIDE RECORDS SUMMARY | 2023-06-26 07:52 | XMS_ITS | CCD ---
Author Name Unknown Address [facility] [place] [address] Organization [facility] Care Team Providers Care Plastics Nurse Name Role Phone Mundo Simeon Primary Care [...] L Primary Care Unavailable KyeJames Camron Unavailable [phone] BRISSA ., DR WHALEN Admitting Unavailable BRISSA ., DR WHALEN Attending Unavailable [facility], [place] VILLAFUERTE Primary Care Unavailable BRISSA ., DR WHALEN Consulting Unavailable MARGARET, DR JEANNIE Brunner Consulting Unavailable BRISSA ., DR WHALEN Admitting Unavailable BRISSA ., DR WHALEN Attending Unavailable [facility] [place] VILLAFUERTE Primary Care Unavailable BRISSA ., [...] 30 to 65on 08-26-2022 . . Normal [facility] Comment on above: Result Comment: Perf ormed at: WB Performed By: #### [id number] #### [facility] [address] [address] [address] Karissa Black Age Gdln ACOG Testing 30-65 Normal [facility] Comment on above: Performed By: #### [id number] #### [facility] [address] [address] [address] Karissa Black DIAGNOSIS: Comment Normal [facility] Comment on above: Result Comment: NEGA TIVE FOR INTRAEPITHELIAL LESION OR MALIGNANCY. Performed at: WB Performed By: #### [id number] #### [facility] [address] [address] [address] Karissa Black HPV Aptima Negative Normal Negative [facility] Comment on above: Result Comment: This nucleic acid amplification test detects fourteen high-risk HPV types (16,18,31,33,35,39,45,51,52,56,58,59,66,68) without differentiation. Performed at: =G Performed By: #### [id number] #### [facility] [address] [address] [address] Karissa Black HPV Genotype Reflex Comment Normal [facility] Comment on above: Result Comment: Crit eria not met, HPV Genotype not performed. Performed at: WB Performed By: #### [id number] #### [facility] [address] [place] [address] Dr. Karissa Black Methodology: Comment Normal [facility] Comment on above: Result Comment: This liquid based ThinPrep(R) pap test was screened with the use of an image guided system. Performed at: WB Performed By: #### [id number] #### [facility] [address] [place] [address] Dr. Karissa Black Note: Comment Normal [facility] Comment on above: Result Comment: The Pap smear is a screening test designed to aid in the detection of premalignant and malignant conditions of the uterine cervix. It is not a diagnostic procedure and should not be used as the sole means of detecting cervical cancer. Both false-positive and false-negative reports do occur. . Performed at: WB Performed By: #### [id number] #### [facility] [address] [address] [address] Karissa Black Performed by: Comment Normal [facility] Comment on above: Result Comment: Brenda Alexander, Shrimp Peeling Machine Operator (ASCP) Performed at: WB Performed By: #### [id number] #### [facility] [address] [address] [address] Karissa Black Specimen adequacy: Comment Normal [facility] Comment on above: Result Comment: Sati sfactory for evaluation. Endocervical and/or squamous metaplastic cells (endocervical component) are present. Performed at: WB Performed By: #### [id number] #### [facility] [address] [place] [address] Dr. Karissa Black MG MAMM SCREEN 3D PO CADon 11-29-2021 MG MAMM SCREEN 3D PO CAD Patient: ALVIN GARCIA Exam Date: 11/29/2021 : 1965 Gender:F Ordering : DR KOBY BRUMFIELD . Admission #: [id number] Family : Order #: [id number] CLICK HERE TO VIEW EXAM RADIOLOGY REPORT [...] lung cancer at age 67. LOCATION: [facility] BREAST COMPOSITION: Almost entirely fatty. FINDINGS: [...] Palma M.D. on 11/29/2021 at 11:18 Normal [facility] COVID-19, MOLECULARon 2019 SARS-COV-2 RNA (ITALIA) Not Detected Normal Not Detected [facility] Comment on above: Result Comment: This test [...] at the following links: For Healthcare Providers: https://www.fda.gov/media/253720/download For Patients: https://www.fda.gov/media/608728/download Performed By: #### L [id number] #### [facility] [address] [place] [address] Blake Curry M.D. [id number] XR CHEST (2 VW)on 01-27-2020 XR CHEST [...] Bradley Mcguire DO 01/27/20 Final result Normal [facility] Nonacute two-view chest. [facility] [place] [place] EXAM: XR CHEST (2 VW ) HISTORY: Reason for exam:->pre op clearance COMPARISON: Two-view chest from 02/21/2019. TECHNIQUE: Frontal and lateral films are done of the chest. FINDINGS: Trachea, mediastinum and heart size are unremarkable. The lungs are clear and well aerated. No infiltrate or nodule or effusion or pneumothorax is noted. The diaphragm and bony elements are intact. [place], [place] Shamar, Mhpn Incoming Radiant Results From [facility] - 01/27/2020 2:40 AM EDT EXAM: XR [...] elements are intact. IMPRESSION: Nonacute two-view chest. [place], [place] Basic Metabolic Panelon 01-03 Anion gap [Moles/Vol] 11 mmol/L 9 - 17 mmol/L [place] Bun/Cre Ratio 15 [place], [place] Calcium [Mass/Vol] 9.6 mg/dL 8.6 - 10. 4 mg/dL [place] Chloride [Moles/Vol] 105 mmol/L 98 - 10 7 mmol/L [place] CO2 [Moles/Vol] 26 mmol/L 20 - 31 mmol/L [place] Creatinine [Mass/Vol] 1.07 mg/dL High 0.5 - 0.9 mg/dL [place] GFR >60 >60 mL/min [place], [place] GFR Non- 54 mL/min Low >60 [place] GFR/1.73 sq M predicted among non-blacks MDRD (S/P/Bld) [Vol rate/Area] NOT REPORTED [place] GFR/1.73 sq M predicted among non-blacks MDRD (S/P/Bld) [Vol rate/Area] [place] Comment on above: Average GFR for 50-5 9 years old: 93 mL/min/1.73sq m Chronic Kidney Disease: <60 mL/min/1.73sq m Kidney failure: <15 mL/min/1.73sq m eGFR calculated using average adult body mass. Additional eGFR calculator available at: http://www.globalrph.com/multiple_crcl_2012.htm Glucose [Mass/Vol] 96 mg/dL 70 - 99 mg/dL [place], [place] Interpretation and review of laboratory results Abnormal [place] Potassium [Moles/Vol] 4.4 mmol/L 3.7 - 5.3 mmol/L [place] Sodium [Moles/Vol] 142 mmol/L 135 - 144 mmol/L [place] Urea nitrogen [Mass/Vol] 16 mg/dL 6 - 20 mg/dL [place] Basic Metabolic Profon 01-25 (cont.) Normal [facility] Comment on above: Result Comment: Aver age GFR for 50-59 years old: 93 mL/min/1.73sq m Chronic Kidney Disease: <60 mL/min/1.73sq m Kidney failure: <15 mL/min/1.73sq m eGFR calculated using average adult body mass. Additional eGFR calculator available at: http://www.Kloudless/multiple_crcl_2012.htm Performed By: #### Dmitriy FAST , BMP #### [facility] [address] [place] [address] Kit Assembler: Adam Burdick MD #### LIPR #### [facility] [address] [place] [address] Kit Assembler: Blaine Tarango MD Anion gap [Moles/Vol] 11 mmol/L Normal - [facility] Comment on above: Performed By: #### Dmitriy FAST HH, BMP #### [facility] [address] [place] [address] Kit Assembler: Adam Burdick MD #### LIPR #### [facility] [address] [place], [place] [id number] Kit Assembler: Blaine Tarango MD BUN/CRE Ratio 15 Normal - [facility] Comment on above: Performed By: #### Dmitriy MCDONALD , BMP #### [facility] [address] [place], [place] [id number] Kit Assembler: Adam Burdick MD #### LIPR #### [address] [id number] Kit Assembler: Blaine Tarango MD Calcium [Mass/Vol] 9.6 mg/dL Normal 8.6-10.4 [facility] Comment on above: Performed By: #### Dmitriy MCDONALD, , BMP #### [facility] [address] [place], [place] [id number] Kit Assembler: Adam Burdick MD #### LIPR #### [address] [id number] Kit Assembler: Blaine Tarango MD Chloride [Moles/Vol] 105 mmol/L Normal 98-107 [facility] Comment on above: Performed By: #### Dmitriy MCDONALD, , BMP #### [facility] [address] [place], [place] [id number] Kit Assembler: Adam Burdick MD #### LIPR #### [address] [id number] Kit Assembler: Blaine Tarango MD CO2 [Moles/Vol] 26 mmol/L Normal 20-31 [facility] Comment on above: Performed By: #### Dmitriy MCDONALD, , BMP #### [facility] [address] [place], [place] [id number] Kit Assembler: Adam Burdick MD #### LIPR #### [address] [id number] Kit Assembler: Blaine Tarango MD Creatinine [Mass/Vol] 1.07 mg/dL High 0.50-0.90 [facility] Comment on above: Performed By: #### Dmitriy MCDONALD , BMP #### [facility] [address] [place], [place] [id number] Kit Assembler: Adam Burdick MD #### LIPR #### [facility] [address] [place] [address] Kit Assembler: Blaine Tarango MD GFR, Amer >60 Normal >60 [facility] Comment on above: Performed By: #### Dmitriy FAST, , BMP #### [facility] [address] [place] [address] Kit Assembler: Adam Burdick MD #### LIPR #### [address] [address] Kit Assembler: Blaine Tarango MD GFR,non Amer 54 mL/min Low >60 [facility] Comment on above: Performed By: #### Dmitriy FAST, , BMP #### [facility] [address] [place] [address] Kit Assembler: Adam Burdick MD #### LIPR #### [address] [address] Kit Assembler: Blaine Tarango MD Glucose [Mass/Vol] 96 mg/dL Normal 70-99 [facility] Comment on above: Performed By: #### Dmitriy FAST, , BMP #### [facility] [address] [place] [address] Kit Assembler: Adam Burdick MD #### LIPR #### [address] [address] Kit Assembler: Blaine Tarango MD Potassium [Moles/Vol] 4.4 mmol/L Normal 3.7-5.3 [facility] Comment on above: Performed By: #### Dmitriy FAST, HH, BMP #### [facility] [address] [place] [address] Kit Assembler: Adam Burdick MD #### LIPR #### [address] [id number] Kit Assembler: Blaine Tarango MD Sodium [Moles/Vol] 142 mmol/L Normal 135-144 [facility] Comment on above: Performed By: #### Dmitriy MCDONALD , BMP #### [facility] [address] [place], [place] [id number] Kit Assembler: Adam Burdick MD #### LIPR #### [facility] [address] [place], [place] [id number] Kit Assembler: Blaine Tarango MD Urea nitrogen [Mass/Vol] 16 mg/dL Normal 6-20 [facility] Comment on above: Performed By: #### MERNA AKBAR, BMP #### [facility] [address] [place] [address] Kit Assembler: Adam Burdick MD #### LIPR #### [address] [id number] Kit Assembler: Blaine Tarango MD Staging: NOT REPORTED Normal [facility] Comment on above: Performed By: #### MERNA AKBAR, BMP #### [facility] [address] [place] [address] Kit Assembler: Adam Burdick MD #### LIPR #### [facility] [address] [place] [address] [id number] Kit Assembler: Blaine Tarango MD Hemoglobin And Hematocrit, B loodon 01-26-2020 Hematocrit (Bld) [Volume fraction] 42.7 % 36 - 46 % [place] Hemoglobin (Bld) [Mass/Vol] 13.9 g/dL 12 - 16 g/dL [place] Hgb/Hcton 01-26-2020 Hematocrit (Bld) [Volume fraction] 42.7 % Normal 36-46 [facility] Comment on above: Performed By: #### MERNA AKBAR, BMP #### [facility] [address] [place] [address] Kit Assembler: Adam Burdick MD #### LIPR #### [facility] [address] [place], [place] [id number] Kit Assembler: Blaine Tarango MD Hemoglobin (Bld) [Mass/Vol] 13.9 g/dL Normal 12.0-16.0 [facility] Comment on above: Performed By: #### Dmitriy FAST, MERNA, BMP #### [facility] [address] [place] [address] Kit Assembler: Adam Burdick MD #### LIPR #### [facility] [address] [place], [place] [phone] Kit Assembler: Blaine Tarango MD Lipid Panelon 01-26-2020 Cholesterol [Mass/Vol] 217 mg/dL High <200 [place] Comment on above: Cholesterol Guidelines: <200 Desirable 200-240 Borderline >240 Undesirable Cholesterol in HDL [Mass/Vol] 49 mg/dL >40 [place] Comment on above: HDL Guidelines: <40 Undesirable 40-59 Borderline >59 Desirable Cholesterol in LDL [Mass/Vol] 143 mg/dL High 0 - 130 mg/dL [place] Comment on above: LDL Guidelines: <100 Desirable 100-129 Near to/above Desirable 130-159 Borderline >159 Undesirable Direct (measured) LDL and calculated LDL are not interchangeable tests. Cholesterol in VLDL [Mass/Vol] NOT REPORTED 1 - 30 mg/dL [place] Cholesterol.total/Ch olesterol in HDL [Mass ratio] 4.4 {ratio} <5 [place] Interpretation and review of laboratory results Abnormal [place] Triglyceride [Mass/Vol] 124 mg/dL <150 [place] Comment on above: Triglyceride Guidelines: <150 Desirable 150-199 Borderline 200-499 High >499 Very high Based on AHA Guidelines for fasting triglyceride, February 2012. Lipid Profileon 01-26-2020 Cholesterol [Mass/Vol] 217 mg/dL High <200 [facility] Comment on above: Result Comment: Cholesterol Guidelines: <200 Desirable 200-240 Borderline >240 Undesirable Performed By: #### Z FAST, , BMP #### [facility] [address] [place], [place] [phone] Kit Assembler: Adam Burdick MD #### LIPR #### [facility] [address] [place] [address] Kit Assembler: Blaine Tarango MD Cholesterol in HDL [Mass/Vol] 49 mg/dL Normal >40 [facility] Comment on above: Result Comment: HDL Guidelines: <40 Undesirable 40-59 Borderline >59 Desirable Performed By: #### Dmitriy MCDONALD , BMP #### [facility] [address] [place], [place] [id number] Kit Assembler: Adam Burdick MD #### LIPR #### [address] [phone] Kit Assembler: Blaine Tarango MD Cholesterol in LDL [Mass/Vol] 143 mg/dL High 0-130 [facility] Comment on above: Result Comment: LDL Guidelines: <100 Desirable 100-129 Near to/above Desirable 130-159 Borderline >159 Undesirable Direct (measured) LDL and calculated LDL are not interchangeable tests. Performed By: #### Dmitriy MCDONALD , BMP #### [facility] [address] [place], [place] [id number] Kit Assembler: Adam Burdick MD #### LIPR #### [address] [address] Kit Assembler: Blaine Tarango MD Cholesterol.total/Ch olesterol in HDL [Mass ratio] 4.4 {ratio} Normal <5 [facility] Comment on above: Performed By: #### MERNA AKBAR, BMP #### [facility] [address] [place], [place] [id number] Kit Assembler: Adam Burdick MD #### LIPR #### [address] [id number] Kit Assembler: Blaine Tarango MD Triglyceride [Mass/Vol] 124 mg/dL Normal <150 [facility] Comment on above: Result Comment: Triglyceride Guidelines: <150 Desirable 150-199 Borderline 200-499 High >499 Very high Based on AHA Guidelines for fasting triglyceride, February 2012. Performed By: #### Dmitriy MCDONALD , BMP #### [facility] [address] [place] [address] Kit Assembler: dAam Burdick MD #### LIPR #### [id number] [place] [address] Kit Assembler: Blaine Tarango MD Cholesterol in VLDL [Mass/Vol] NOT REPORTED Normal 06-02 [facility] Comment on above: Performed By: #### Dmitriy MCDONALD , BMP #### [facility] [address] [place] [address] Kit Assembler: Adam Burdick MD #### LIPR #### [facility] [address] [place] [address] Kit Assembler: Blaine Tarango MD Patient Fasting?on 0 Patient Fasting? NO [place], [place] Patient fasting?on 0 Patient fasting? NO Normal [facility] Comment on above: Performed By: #### Dmitriy MCDONALD , BMP #### [facility] [address] [place], [place] [phone] Kit Assembler: Adam Burdick MD #### LIPR #### [facility] [address] [place] [address] Kit Assembler: Blaine Tarango MD Basic Metabolic Panelon 10-2 Anion gap [Moles/Vol] 11 mmol/L 10 - 20 mmol/L [facility] Calcium [Mass/Vol] 8.6 mg/dL 8.4 - 10. 2 mg/dL [facility] Chloride [Moles/Vol] 108 mmol/L 98 - 10 8 mmol/L [facility] Creatinine [Mass/Vol] 1.30 mg/dL High 0.4 - 1.1 mg/dL [facility] GFR/1.73 sq M predicted among non-blacks MDRD (S/P/Bld) [Vol rate/Area] The eGFR should be used for monitoring renal function only and not for medication dosing. [facility] GFR/1.73 sq M.predicted CKD-EPI (S/P/Bld) [Vol rate/Area] 47 Low >=60 mL/min/1.73 m2 [facility] Glucose [Mass/Vol] 123 mg/dL High 65 - 99 mg/dL [facility] [place] HCO3 [Moles/Vol] 27 mmol/L 21 - 32 mmol/L [facility] Interpretation and review of laboratory results Abnormal [facility] Potassium [Moles/Vol] 4.6 mmol/L 3.5 - 5.1 mmol/L [facility] Sodium [Moles/Vol] 141 mmol/L 135 - 145 mmol/L [facility] Urea nitrogen [Mass/Vol] 19 mg/dL 8 - 25 mg/dL [facility] Urea nitrogen/Creatinine [Mass ratio] 14.6 mg/mg [facility] CBCon 02-23-2019 Erythrocyte distribution width (RBC) [Entitic vol] 13.2 % 11.6 - 14.8 % [facility] Hematocrit (Bld) [Volume fraction] 42.6 % 36 - 46 % [facility] Hemoglobin (Bld) [Mass/Vol] 13.9 g/dL 12 - 16 g/dL [facility] Interpretation and review of laboratory results Abnormal [facility] MCH (RBC) [Entitic mass] 29.4 pg 26 - 34 pg [facility] MCHC (RBC) [Mass/Vol] 32.6 g/dL 31 - 37 g/dL [facility] MCV (RBC) [Entitic vol] 90.1 fL 80 - 100 fL [facility] Platelet mean volume (Bld) [Entitic vol] 10.3 fL 9 - 15.5 fL [facility] Platelets (Bld) [#/Vol] 257 10*3/uL [facility] RBC (Bld) [#/Vol] 4.73 10*6/uL [facility] ealth WBC (Bld) [#/Vol] 13.62 10*3/uL High [facility] XR CHEST AP/PA AND LATon No acute cardiopulmonary process. ST/mjr Workstation ID: [id number] [facility] EXAMINATION: XR CHES T AP/PA AND LAT [...] normal in size. Bony thorax is unremarkable. [facility] Interface, Rad In [employer] Speech[employer] - 02/21/2019 [...] is unremarkable. IMPRESSION: No acute cardiopulmonary process. [employer] Workstation ID: [id number] [facility] XR CHEST AP/PA AND LAT EXAMINATION: XR [...] is unremarkable. IMPRESSION: No acute cardiopulmonary process. 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 [facility] Workstation ID: [id number] [facility] EXAMINATION: US ABDOMEN LIMITED STUDY HISTORY: ORDERING [...] 2.5 x 2.2 cm right parapelvic cyst. 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 [facility] Workstation ID: [id number] [facility] Vital Signs Date Time Vital Sign Value Performing Clinician Floyd tran 02-23-2019 12:20-0400 BP Diastolic 66 mm[Hg] [facility] 02-23-2019 12:20-0400 BP Systolic 143 mm[Hg] [facility] 02-23-2019 12:20-0400 Pulse (Heart Rate) 80 /min [facility] 02-23-2019 12:18-0400 Pulse Oximetry 95 % [facility] 02-23-2019 12:16-0400 Body Temperature 98.49 [degF] [facility] 02-23-2019 07:21-0400 Respiratory Rate 15 /min [facility] 02-22-2019 11:21-0400 BMI (Body Mass Index) 44.43 kg/m2 [facility] 02-22-2019 11:21-0400 Body weight 121.11 kg [facility] 02-22-2019 11:21-0400 Height 165.1 cm [facility] Encounters Encounter Date Encounter Type Care Provider Facility Start: 08-19-2022 End: 08-19-[address] KOBY BRUMFIELD . Facility: Start: 11-29-2021 End: 11-30-[address] KOBY BRUMFIELD . Facility:[facility] Start: 07-17-2020 End: 07-17-2020 Orders Only Erica Mccurdy Work Phone: [facility] Start: 05-23-2020 End: 05-24-2020 Patient encounter procedure [facility] Start: 05-23-2020 End: 05-23-2020 Subsequent hospital visit by physician [place] [facility] Comment on above: Arrived Start: 05-21-2020 End: 05-22-2020 Patient encounter procedure [facility] Start: 05-21-2020 End: 05-21-2020 Subsequent hospital visit by physician Diane Hargrove [facility] Comment on above: Arrived Start: 05-17-2020 End: 05-18-2020 Patient encounter procedure [facility] Start: 05-17-2020 End: 05-17-2020 Subsequent hospital visit by physician Diaen PRYOR [facility] Comment on above: Arrived Start: 05-15-2020 End: 05-16-2020 Patient encounter procedure [facility] Start: 05-15-2020 End: 05-15-2020 Subsequent hospital visit by physician Diane Hargrove [facility] Physical Therapy Comment on above: Arrived Start: 05-10-2020 End: 05-11-2020 Patient encounter procedure [facility] Start: 05-10-2020 End: 05-10-2020 Subsequent hospital visit by physician Diane Hargrove [facility] Physical Therapy Comment on above: Arrived Start: 05-08-2020 End: 05-09-2020 Patient encounter procedure [facility] Start: 05-08-2020 End: 05-08-2020 Subsequent hospital visit by physician Oh [facility] Comment on above: Arrived Start: 05-03-2020 End: 05-04-2020 [facility]: 05-[facility]-2020 End: 05-03-2020 Subsequent hospital visit by physician Diane [facility] Comment on above: Arrived Start: 05-01-2020 End: 05-02-2020 Patient encounter procedure HENNY [place] HENDRIX [facility] Start: 05-01-2020 End: 05-01-2020 Subsequent hospital visit by physician Oh [facility] Comment on above: Arrived Start: 04-25-2020 End: 04-26-2020 [facility] [facility] Start: 04-25-2020 End: 04-25-2020 Subsequent hospital visit by physician Oh [facility] Comment on above: Arrived Start: 04-24-2020 End: 04-25-2020 Patient encounter procedure [place] [facility] [facility] Start: 04-24-2020 End: 04-24-2020 Subsequent hospital visit by physician [facility] Comment on above: Arrived Start: 04-19-2020 End: 04-20-2020 [facility] [facility]: 04-19-2020 End: 04-19-2020 Subsequent hospital visit by physician Diane [facility] Comment on above: Arrived Start: 04-17-2020 End: 04-18-2020 [facility] [facility] Start: 04-17-2020 End: 04-17-2020 Subsequent hospital visit by physician Oh [facility] Comment on above: Arrived Start: 04-12-2020 End: 04-13-2020 [facility] Start: 04-12-2020 End: 04-12-2020 Subsequent hospital visit by physician [facility] Comment on above: Arrived Start: 04-10-2020 End: 04-11-2020 Patient [facility] Start: 04-10-2020 End: 04-10-2020 Subsequent hospital visit by physician Diane AG[facility] Comment on above: Arrived Start: 04-05-2020 End: 04-06-2020 Patient encounter procedure HENNY Tosha HENDRIX [facility] Start: 04-05-2020 End: 04-05-2020 Subsequent hospital visit by physician Diane Hargrove [facility] Comment on above: Arrived Start: 04-03-2020 End: 04-04-2020 Patient encounter procedure HENNYAYLA HENDRIX [facility] Start: 04-03-2020 End: 04-03-2020 Subsequent hospital visit by physician Oh Elizabeth [facility] Comment on above: Arrived Start: 03-27-2020 End: 03-28-2020 Patient encounter procedure HENNY Tosha HENDRIX [facility] Start: 03-27-2020 End: 03-27-2020 Subsequent hospital visit by physician Breanna Cisse [facility] Comment on above: Arrived Start: 03-26-2020 End: 03-27-[address] [facility] Start: 03-26-2020 End: 03-26-2020 Subsequent hospital visit by physician Diane Hargrove [facility] Comment on above: Arrived Start: 03-22-2020 End: 03-23-2020 [facility] Start: 03-22-2020 End: 03-22-2020 Subsequent hospital visit by physician Breanna Cisse [facility] Comment on above: Arrived Start: 03-19-2020 End: 03-20-2020 Patient encounter procedure [place] Tosha WILLOUGHBYVIDYA [facility] Start: 03-19-2020 End: 03-19-2020 Subsequent hospital visit by physician Mohini Pérez Work Phone: [facility] Comment on above: Arrived Start: 03-16-2020 End: 03-17-2020 Patient encounter [facility] [place] [facility] Start: 03-16-2020 End: 03-16-2020 Subsequent hospital visit by physician Diane Hargrove [facility] Comment on above: Arrived Start: 03-13-2020 End: 03-14-[address] [facility] Start: 03-13-2020 End: 03-13-2020 Subsequent hospital visit by physician Breanna Cisse [facility] Comment on above: Arrived Start: 03-08-2020 End: 03-09-2020 Patient encounter procedure HENNY Givens [facility] Start: 03-08-2020 End: 03-08-2020 Subsequent hospital visit by physician Breanna Cisse [facility] Physical [facility] Comment on above: Arrived Start: 03-06-2020 End: 03-07-2020 Patient encounter procedure HENNY Givens [facility] Start: 03-06-2020 End: 03-06-2020 Subsequent hospital visit by physician Diane Hargrove [facility] Physical Therapy Comment on above: Arrived Start: 02-03-2020 End: 02-03-2020 [facility] Start: 01-26-2020 End: 01-29-2020 Patient encounter procedure SIXTO DELGADILLO [facility] Start: 01-26-2020 End: 01-28-2020 Subsequent hospital visit by physician Lucrecia Additional Xray At [facility] Comment on above: Screening for hyperl ipidemia; Pre-operative clearance Pre-operative cleara nce Start: 02-22-2019 End: 02-23-2019 Patient encounter procedure [facility] Start: 02-22-2019 End: 02-23-2019 Subsequent hospital visit by physician Mundoreta Simeon Work Phone: [facility] Comment on above: Acute post-operative pain (Primary Dx) Start: 02-21-2019 End: 02-22-2019 Patient encounter procedure [facility] Start: 02-21-2019 End: 02-21-2019 [facility] Comment on above: Family history of machelle ng cancer Start: 02-18-2019 End: 02-22-2019 Patient encounter procedure [facility] Start: 02-18-2019 End: 02-19-2019 Patient encounter procedure [facility] Start: 02-18-2019 End: 02-18-2019 [facility] Comment on above: Abdominal pain, righ [...] Author Start: 01-25-2025 [facility]: 01-25-2021 [facility]enza [facility] Comment on above: Postponed from 01/02 (Patient Refused) Start: 01-25-2021 Shingles Vaccine (1 of 2) Bergeron gles Vaccine (1 of 2) [place], [place] Comment on above: Postponed from 11/02 [...] Appointment 04/17/2020 Appointment Physical Therapy Oh Elizabeth FLIGHT TECHNICIAN [facility] Start: 04-12-2020 End: 04-12-2020 Appointment 04/12/2020 Appointment Physical Therapy Oh Elizabeth FLIGHT TECHNICIAN [facility] Start: 04-10-2020 End: 04-10-2020 Appointment 04/10/2020 Appointment Physical Therapy Diane Hargrove, PT [facility] Start: 04-05-2020 End: 04-05-2020 Appointment 04/05/2020 Appointment Physical Therapy Diane Hargrove, PT [facility] Start: 04-03-2020 End: 04-03-2020 Appointment 04/03/2020 Appointment Physical Therapy Oh Elizabeth FLIGHT TECHNICIAN [facility] Start: 03-27-2020 End: 03-27-2020 Appointment 03/27/2020 Appointment Physical Therapy Breanna Cisse [facility] Start: 03-26-2020 End: 03-26-2020 Appointment 03/26/2020 Appointment Physical Therapy Diane Hargrove PT [facility] Start: 03-22-2020 End: 03-22-2020 Appointment 03/22/2020 Appointment Physical Therapy Breanna Cisse [facility] Start: 03-19-2020 End: 03-19-2020 Appointment 03/19/2020 Appointment Physical Therapy Mohini Pérez, PT [address] [place] [address] [phone] [facility] Start: 03-16-2020 End: 03-16-2020 Appointment 03/16/2020 Appointment Physical Therapy Diane Hargrove, PT [facility] Start: 03-13-2020 End: 03-13-2020 Appointment 03/13/2020 Appointment Physical Therapy Breanna Cisse [facility] Start: 03-08-2020 End: 03-08-2020 Appointment 03/08/2020 Appointment Physical Therapy Breanna Cisse [facility] Start: 02-16-2020 DTaP/Tdap/Td vaccine (1 - Tdap) DTaP/Tdap/Td vaccine (1 - Tdap) [place] Comment on above: Postponed from 11/02 (Not Indicated) Start: 01-03-2020 Influenza vaccinatio n given Sequential Influenza Vaccine (#1) [facility] Start: 01-02-2019 Influenza vaccinatio n given SEQUENTIAL INFLUENZA VACCINE (#1) [facility] Start: 07-18-2017 Screening for malign ant neoplasm of cervix [place], [place] Start: 2016 Administration of [facility] zoster vaccine Zoster Vaccines (1 of 2) [facility] Start: 2016 Screening for malign ant neoplasm of breast Breast cancer screen [place], [place] Start: 2016 Screening for malign ant neoplasm of colon [place] Start: 12-14-2014 Screening mammography Mammogram [facility] Start: 2006 Lipid panel Lipid screen [place], [place] Start: 1985 DTaP/Tdap/Td vaccine (1 - Tdap) DTaP/Tdap/Td vaccine (1 - Tdap) [place], [place] Start: 1984 Hepatitis C antibody , confirmatory test Hepatitis C Screening [facility] Start: 1982 COVID-19 Vaccine (1 of 2) COVI D-19 Vaccine (1 of 2) [facility] Start: 1981 HIV screening [place], [place] Start: 1978 Adolescent depressio n screening assessment Depression Screening (PHQ9) [facility] Start: 1969 History and physical examination, annual for health maintenance Wellness Visit [facility] Start: 1966 Hepatitis C screening Hepatitis C sc reen [place], [place] Start: 1966 Screening for malign ant neoplasm of cervix PAP SMEAR [facility] Start: 1966 Screening for malign ant neoplasm of colon Colorectal Cancer Screening: Colonoscopy [facility] Start: 1966 [facility] Start: 1966 Tetanus vaccination [facility] [place] End: 02-21-2019 12 lead ECG ECG 12 Lead ECG Routine Family history of lung cancer Once for 1 Occurrences starting 02/21/2019 until 02/21/2019 [facility] Comment on above: Once for 1 Occurrenc es starting 02/21/2019 until 02/21/2019 EKG 12 lead EKG 12 lead ECG Routine Pre-operative clearance 01/26/2020 4:17 PM EDT [facility] [place], [facility] Procedure on tissue specimen Tissue Exam Pathology and Cytology STAT Once for 1 Occurrences starting 02/22/2019 [facility] Comment on above: Once for 1 Occurrenc es starting 02/22/2019 Payers Date Payer Category Payer Unknown [employer] PPO xxxxxxxxxxxx 2018-Present xxxxxxxxxxxx [id number] 2018 Unknown [employer] PPO [id number] 2018-Present [id number] 1966 Unknown [id number] 2.840.1.443505.3.579.2.903 1966 Unknown [id number] 2.16840.1.454762.3.579.2.903 1966 Unknown [id number] 2.16840.1.456616.3.579.2.903 1966 Unknown [id number] 2.840.1.054793.3.579.2.903 1966 Unknown [id number] 2.840.1.672584.3.579.2.903 1966 Unknown [id number] 2.16840.1.427435.3.579.2.900 1966 Unknown [id number] 2.16840.1.950804.3.579.2.174 1966 Unknown [id number] 2.16840.1.231480.3.579.2.174 1966 Unknown [id number] 2.16840.1.413096.3.579.2.174 1966 Unknown [id number] 2.16.840.1.635729.3.579.2.174 1966 Unknown [id number] 2.16.840.1.310712.3.579.2.174 1966 Unknown [id number] 2.16.840.1.936426.3.579.2.174 1966 Unknown [id number] 2.16.840.1.609076.3.579.2.174 1966 Unknown [id number] 2.16.840.1.406253.3.579.2.174 1966 Unknown [id number] 2.16.840.1.571709.3.579.2. 1966 Unknown [id number] 2.16.840.1.794736.3.579.2. 1966 Unknown [id number] 2.16840.1.673168.3.579.2. 1966 Unknown [id number] 2.16.840.1.269559.3.579.2. 1966 Unknown [id number] 2.16840.1.398579.3.579.2. 1966 Unknown [id number] 2.16.840.1.768623.3.579.2. 1966 Unknown [id number] 2.16840.1.811453.3.579.2. 1966 Unknown [id number] 2.16.840.1.034285.3.579.2.174 1966 Unknown [id number] 2.16.840.1.040958.3.579.2. 1966 Unknown [id number] 2.16.840.1.863355.3.579.2. 1966 Unknown [id number] 2.16.840.1.370019.3.579.2. 1966 Unknown [id number] 2.16.840.1.984945.3.579.2.174 1966 Unknown [id number] 2.16.840.1.243145.3.579.2.174 1966 Unknown [id number] 2.16.840.1.854861.3.579.2.174 1966 Unknown [id number] 2.16.840.1.966234.3.579.2. 1966 Unknown [id number] 2.16.840.1.998070.3.579.2.174 1966 Unknown [id number] 2.16.840.1.859580.3.579.2.174 1966 Unknown [id number] 2.16.840.1.441132.3.579.2.174 1966 Unknown [id number] 2.16.840.1.331956.3.579.2.174 1966 Unknown [id number] 2.16.840.1.897131.3.579.2.174 1966 Unknown [id number] 2.16.840.1.720406.3.579.2.593 1966 Unknown [id number] 2.16.840.1.567766.3.579.2.593 1959 Unknown [id number] Social History Date Type Detail Facility Tobacco smoking stat [facility] Unknown if ever smoked [facility] Sex Assigned At [place] Start: 02-23-2019 End: 01-26-2020 Tobacco smoking status [facility] Never smoker [place] Start: 02-23-2019 End: 01-26-2020 Tobacco use and exposure [facility] Start: 02-23-2019 End: 01-26-2020 Alcohol intake Current drinker of alcohol (finding) [place], [place] Start: 01-26-2020 History SDOH Financial 5 [place] Start: 01-26-2020 History SDOH Food Worry 1 [place] Start: 01-26-2020 History SDOH Transpo rt Med 2 [place] Start: 01-26-2020 Alcohol Comment twice a month [place] Start: 02-22-2019 Alcohol Comment 1 per month [facility] [place] Assessments Diagnosis Family history of lung cancer [...] FoundDocuments on File Type Date Recorded Patient Director Digital Expl anation Advance Directives and Livin g Will 02/21/2019 6:46 AM Documents on File Type Date Recorded Patient Director Digital Expl anation ACP-Advance Directive ACP-Power of Unit Secy Documents on File Type Date Recorded Patient Director Digital Expl anation Advance Directives and Livin g Will 02/22/2019 10:52 AM Latest Code Status on File Code Status Date Activated Date Inactivated Comments Full Code 02/22/2019 5:48 PM Documents on File Type Date Recorded Patient Director Digital Expl anation Advance Directives and Livin g Will 02/21/2019 6:46 AM Documents on File Type Date Recorded Patient Director Digital Expl anation Advance Directives and Livin g Will 02/18/2019 6:46 AM Documents on File Type Date Recorded Patient Director Digital Expl anation Advance Directives and Livin g Will 02/22/2019 10:52 AM Latest Code Status on File Code Status Date Activated Date Inactivated Comments Full Code 02/22/2019 5:48 PM Documents on File Type Date Recorded Patient Director Digital Expl anation ACP-Advance Directive ACP-Power of Unit Secy Summary Purpose Family History No Family History Records FoundNo Family History Records FoundNo Family History Records FoundNo Family History Records Found History of Present Illness * Diane Hargrove, PT - 03/06/2020 10:15 AM EST [facility] Evaluation Date: 03/06/2020 Patient: Alvin Garcia : 1965 Referring Practitioner: Dr. James Marie Referral Date : 03/05/20 Diagnosis: Strain of L Achilles tendon, Achilles Tendonitis Treatment Diagnosis: Gait ataxia s/p L Achilles Repair Onset Date: 02/07/20 PT Insurance Information: [employer] [place] Total # of Visits Approved: 12 Per [...] change after 2 visits. Pt went to [place] and had a second opinion, had MRI pt had a ruptured tendon of her ankle. Pt now has Dr Pham at [facility]. Pt reports prior to sx pain was so severe she could barely tolerate touch. Pt reports that she then had sx Feb was completed as out patient. Pt was casted post op. Pt reports he took a tendon from great toe and moved it to Achilles. 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 Patient's Goal: Patient goals : Be able to walk and return to work Dec Timed Code Treatment Minutes: 0 Minutes Total Treatment Time: 55 Time In: 1035 Time Out: 1130 Diane Hargrove, PT Date: 03/06/2020 documented in this encounter* Breanna Cisse - 03/08/2020 10:30 AM EST [facility] Daily Note Date: 03/08/2020 Patient Name: Alvin Garcia : 1965 (54 y.o.) Referring Practitioner: Dr. James Marie Referral Date : 03/05/20 Diagnosis: Strain of L Achilles tendon, Achilles Tendonitis Treatment Diagnosis: Gait ataxia s/p L Achilles Repair Onset Date: 02/07/20 PT Insurance Information: [employer] [place] Total # of Visits Approved: 12 Per [...] 2: Pt to have PROM DF 10deg Assisted Goals - Time Frame for intermodal dispatcher goals : 12 visits residential goal 1: Pt to score >35/80 on LEFS to improve ADLs residential goal 2: Pt to amb without AD x100ft without deviations intermodal dispatcher goal 3: Pt to maintain SLS 10sec 2:3 trials to improve stair safety. Post Treatment Pain: 0/10 Time In: 1035 Time Out : 1105 Timed Code Treatment Minutes: 30 Minutes Total Treatment Time: 30 Minutes Breanna Cisse FLIGHT TECHNICIAN Date: 03/08/2020 documented in this encounter* Breanna Cisse - 03/13/2020 1:45 PM EST [facility] Daily Note Date: 03/13/2020 Patient Name: Alvin Garcia : 1965 (54 y.o.) Referring Practitioner: Dr. James Marie Referral Date : 03/05/20 Diagnosis: Strain of L Achilles tendon, Achilles Tendonitis Treatment Diagnosis: Gait ataxia s/p L Achilles Repair Onset Date: 02/07/20 PT Insurance Information: [employer] [place] Total # of Visits Approved: 12 Per [...] 2: Pt to have PROM DF 10deg Chief Estimator Goals - Time Frame for intermodal dispatcher goals : 12 visits intermodal dispatcher goal 1: Pt to score >35/80 on LEFS to improve ADLs intermodal dispatcher goal 2: Pt to amb without AD x100ft without deviations intermodal dispatcher goal 3: Pt to maintain SLS 10sec 2:3 trials to improve stair safety. Post Treatment Pain: 0/10 Time In: 1340 Time Out : 1415 Timed Code Treatment Minutes: 35 Minutes Total Treatment Time: 35 Minutes Breanna Cisse FLIGHT TECHNICIAN Date: 03/13/2020 documented in this encounter* Diane Hargrove, PT - 03/16/2020 1:45 PM EST [facility] Daily Note Date: 03/16/2020 Patient Name: Alvin Garcia : 1965 (54 y.o.) Referring Practitioner: Dr. James Marie Referral Date : 03/05/20 Diagnosis: Strain of L Achilles tendon, Achilles Tendonitis Treatment Diagnosis: Gait ataxia s/p L Achilles Repair Onset Date: 02/07/20 PT Insurance Information: [employer] Total # of Visits Approved: 12 Per [...] 2: Pt to have PROM DF 10deg Assisted Goals - Time Frame for residential goals : 12 visits intermodal dispatcher goal 1: Pt to score >35/80 on LEFS to improve ADLs intermodal dispatcher goal 2: Pt to amb without AD x100ft without deviations residential goal 3: Pt to maintain SLS 10sec 2:3 trials to improve stair safety. Post Treatment Pain: 0/10 Time In: 1345 Time Out: 1415 Timed Code Treatment Minutes: 30 Minutes Total Treatment Time: 30 Minutes Diane Hargrove PT Date: 03/16/2020 documented in this encounter* Andrade Mohini, PT - 03/19/2020 1:45 PM EST [facility] Daily Note Date: 03/19/2020 Patient Name: Alvin Garcia : 1965 (54 y.o.) Referring Practitioner: Dr. James Marie Referral Date : 03/05/20 Diagnosis: Strain of L Achilles tendon, Achilles Tendonitis Treatment Diagnosis: Gait ataxia s/p L Achilles Repair Onset Date: 02/07/20 PT Insurance Information: [employer] Total # of Visits Approved: 12 Per [...] 2: Pt to have PROM DF 10deg Assisted Goals - Time Frame for residential goals : 12 visits residential goal 1: Pt to score >35/80 on LEFS to improve ADLs residential goal 2: Pt to amb without AD x100ft without deviations residential goal 3: Pt to maintain SLS 10sec 2:3 trials to improve stair safety. Post Treatment Pain: 0/10 Time In: 1345 Time Out : 1420 Timed Code Treatment Minutes: 30 Minutes Total Treatment Time: 35 Minutes MOHINI PÉREZ PT Date: 03/19/2020 documented in this encounter* Diane Hargrove, PT - 03/26/2020 11:00 AM EST [facility] Progress Report Date: 03/26/2020 Patient: Alvin Garcia : 1965 Referring Practitioner: Dr. James Marie Referral Date : 03/05/20 Diagnosis: Strain of L Achilles tendon, Achilles Tendonitis Treatment Diagnosis: Gait ataxia s/p L Achilles Repair Onset Date: 02/07/20 PT Insurance Information: [employer] [place] Total # of Visits Approved: 12 Per [...] Pt to have PROM DF 10deg-NOT MET intermodal dispatcher goals Time Frame for residential goals : 12 visits intermodal dispatcher goal 1: Pt to score >35/80 on LEFS to improve ADLs residential goal 2: Pt to amb without AD x100ft without deviations intermodal dispatcher goal 3: Pt to maintain SLS 10sec 2:3 trials to improve stair safety. Diane Hargrove Date: 03/26/2020 * Diane Hargrove, PT - 03/26/2020 11:00 AM EST [facility] Daily Note Date: 03/26/2020 Patient Name: Alvin Garcia : 1965 (54 y.o.) Referring Practitioner: Dr. James Marie Referral Date : 03/05/20 Diagnosis: Strain of L Achilles tendon, Achilles Tendonitis Treatment Diagnosis: Gait ataxia s/p L Achilles Repair Onset Date: 02/07/20 PT Insurance Information: [employer] [place] Total # of Visits Approved: 12 Per [...] Pt to have PROM DF 10deg-NOT MET Chief Estimator Goals - Time Frame for intermodal dispatcher goals : 12 visits residential goal 1: Pt to score >35/80 on LEFS to improve ADLs intermodal dispatcher goal 2: Pt to amb without AD x100ft without deviations intermodal dispatcher goal 3: Pt to maintain SLS 10sec 2:3 trials to improve stair safety. Post Treatment Pain: 0/10 Time In: 1109 Time Out: 1149 Timed Code Treatment Minutes: 40 Minutes Total Treatment Time: 40 Minutes Diane Hargrove, PT Date: 03/26/2020 documented in this encounter* Breanna Cisse - 03/27/2020 9:00 AM EST [facility] Daily Note Date: 03/27/2020 Patient Name: Alvin aGrcia : 1965 (54 y.o.) Referring Practitioner: Dr. James Marie Referral Date : 03/05/20 Diagnosis: Strain of L Achilles tendon, Achilles Tendonitis Treatment Diagnosis: Gait ataxia s/p L Achilles Repair Onset Date: 02/07/20 PT Insurance Information: [employer] Total # of Visits Approved: 12 Per [...] Pt to have PROM DF 10deg-NOT MET Chief Estimator Goals - Time Frame for intermodal dispatcher goals : 12 visits intermodal dispatcher goal 1: Pt to score >35/80 on LEFS to improve ADLs residential goal 2: Pt to amb without AD x100ft without deviations intermodal dispatcher goal 3: Pt to maintain SLS 10sec 2:3 trials to improve stair safety. Post Treatment Pain: 0/10 Time In: 0900 Time Out : 0938 Timed Code Treatment Minutes: 38 Minutes Total Treatment Time: 38 Minutes Breanna Cisse FLIGHT TECHNICIAN Date: 03/27/2020 documented in this encounter* Diane Hargrove, PT - 04/10/2020 3:45 PM EST [facility] Daily Note Date: 04/10/2020 Patient Name: Alvin Garcia : 1965 (54 y.o.) Referring Practitioner: Dr. James Marie Referral Date : 03/05/20 Diagnosis: Strain of L Achilles tendon, Achilles Tendonitis Treatment Diagnosis: Gait ataxia s/p L Achilles Repair Onset Date: 02/07/20 PT Insurance Information: [employer] Total # of Visits Approved: 17 Per [...] Time Frame for Short term goals: STGs=LTGs Assisted Goals - Time Frame for intermodal dispatcher goals : 17 visits intermodal dispatcher goal 1: Pt to score >35/80 on LEFS to improve ADLs intermodal dispatcher goal 2: Pt to amb without AD x100ft without deviations intermodal dispatcher goal 3: Pt to maintain SLS 10sec 2:3 trials to improve stair safety. Post Treatment Pain: 07/11 Time In: 1540 Time Out: 1630 Timed Code Treatment Minutes: 50 Minutes Total Treatment Time: 50 Minutes Diane Hargrove, PT Date: 04/10/2020 documented in this encounter* Diane Hargrove, PT - 04/19/2020 3:00 PM EST [facility] Progress Report Date: 04/19/2020 Patient: Alvin Garcia : 1965 Referring Practitioner: Dr. James Marie Referral Date : 03/05/20 Diagnosis: Strain of L Achilles tendon, Achilles Tendonitis Treatment Diagnosis: Gait ataxia s/p L Achilles Repair Onset Date: 02/07/20 PT Insurance Information: [employer] Total # of Visits Approved: 17 Per [...] Time Frame for Short term goals: STGs=LTGs intermodal dispatcher goals Time Frame for residential goals : 17 visits intermodal dispatcher goal 1: Pt to score >35/80 on LEFS to improve ADLs intermodal dispatcher goal 2: Pt to amb without AD x100ft without deviations residential goal 3: Pt to maintain SLS 10sec 2:3 trials to improve stair safety. Diane Hargrove Date: 04/19/2020 * Beena, Diane Givens, PT - 04/19/2020 3:00 PM EST [facility] Daily Note Date: 04/19/2020 Patient Name: Alvin Garcia : 1965 (54 y.o.) Referring Practitioner: Dr. James Marie Referral Date : 03/05/20 Diagnosis: Strain of L Achilles tendon, Achilles Tendonitis Treatment Diagnosis: Gait ataxia s/p L Achilles Repair Onset Date: 02/07/20 PT Insurance Information: [employer] Total # of Visits Approved: 17 Per [...] Time Frame for Short term goals: STGs=LTGs Assisted Goals - Time Frame for intermodal dispatcher goals : 17 visits intermodal dispatcher goal 1: Pt to score >35/80 on LEFS to improve ADLs intermodal dispatcher goal 2: Pt to amb without AD x100ft without deviations intermodal dispatcher goal 3: Pt to maintain SLS 10sec 2:3 trials to improve stair safety. Post Treatment Pain: 07/11 Time In: 1502 Time Out : 1542 Timed Code Treatment Minutes: 40 Minutes Total Treatment Time: 40 Minutes Diane Hargrove, PT Date: 04/19/2020 documented in this encounter* Oh Elizabeth, FLIGHT TECHNICIAN - 04/24/2020 9:00 AM EST [facility] Daily Note Date: 04/24/2020 Patient Name: Alvin Garcia : 1965 (54 y.o.) Referring Practitioner: Dr. James Marie Referral Date : 03/05/20 Diagnosis: Strain of L Achilles tendon, Achilles Tendonitis Treatment Diagnosis: Gait ataxia s/p L Achilles Repair Onset Date: 02/07/20 PT Insurance Information: [employer] [place] Total # of Visits Approved: 17 Per [...] Time Frame for Short term goals: STGs=LTGs Chief Estimator Goals - Time Frame for residential goals : 17 visits intermodal dispatcher goal 1: Pt to score >35/80 on LEFS to improve ADLs residential goal 2: Pt to amb without AD x100ft without deviations intermodal dispatcher goal 3: Pt to maintain SLS 10sec 2:3 trials to improve stair safety. Post Treatment Pain: 0/10 Time In: 0902 Time Out : 09 Timed Code Treatment Minutes: 39 Minutes Total Treatment Time: 39 Minutes Oh Elizabeth PTA Date: 04/24/2020 documented in this encounter* Oh Elizabeth, CARLENE - 04/25/2020 9:00 AM EST [facility] Daily Note Date: 04/25/2020 Patient Name: Alvin Garcia : 1965 (54 y.o.) Referring Practitioner: Dr. James Marie Referral Date : 03/05/20 Diagnosis: Strain of L Achilles tendon, Achilles Tendonitis Treatment Diagnosis: Gait ataxia s/p L Achilles Repair Onset Date: 02/07/20 PT Insurance Information: [employer] [place] Total # of Visits Approved: 17 Per [...] Time Frame for Short term goals: STGs=LTGs Chief Estimator Goals - Time Frame for intermodal dispatcher goals : 17 visits intermodal dispatcher goal 1: Pt to score >35/80 on LEFS to improve ADLs residential goal 2: Pt to amb without AD x100ft without deviations residential goal 3: Pt to maintain SLS 10sec 2:3 trials to improve stair safety. Post Treatment Pain: 0/10 Time In: 0900 Time Out : 0945 Timed Code Treatment Minutes: 45 Minutes Total Treatment Time: 45 Minutes Oh Elizabeth PTA Date: 04/25/2020 documented in this encounter* Oh Elizabeth PTA - 05/01/2020 9:30 AM EST [facility] Daily Note Date: 05/01/2020 Patient Name: Alvin Garcia : 1965 (54 y.o.) Referring Practitioner: Dr. James Marie Referral Date : 03/05/20 Diagnosis: Strain of L Achilles tendon, Achilles Tendonitis Treatment Diagnosis: Gait ataxia s/p L Achilles Repair Onset Date: 02/07/20 PT Insurance Information: [employer] [place] Total # of Visits Approved: 17 Per [...] Time Frame for Short term goals: STGs=LTGs Chief Estimator Goals - Time Frame for intermodal dispatcher goals : 17 visits residential goal 1: Pt to score >35/80 on LEFS to improve ADLs - NOT MET intermodal dispatcher goal 2: Pt to amb without AD x100ft without deviations - NOT MET residential goal 3: Pt to maintain SLS 10sec 2:3 trials to improve stair safety. - NOT MET Post Treatment Pain: 0/10 Time In: 0935 Time Out : 1015 Timed Code Treatment Minutes: 40 Minutes Total Treatment Time: 40 Minutes Oh Elizabeth, FLIGHT TECHNICIAN Date: 05/01/2020 documented in this encounter* Diane Hargrove, PT - 05/03/2020 9:00 AM EST [facility] Daily Note Date: 05/03/2020 Patient Name: Alvin Garcia : 1965 (54 y.o.) Referring Practitioner: Dr. James Marie Referral Date : 03/05/20 Diagnosis: Strain of L Achilles tendon, Achilles Tendonitis Treatment Diagnosis: Gait ataxia s/p L Achilles Repair Onset Date: 02/07/20 PT Insurance Information: [employer] [place] Total # of Visits Approved: 24 Per [...] (Total # of Visits to Date: 18) Chief Estimator Goals - Time Frame for residential goals : 7 visits(Total 24) intermodal dispatcher goal 1: Pt to score >35/80 on LEFS to improve ADLs intermodal dispatcher goal 2: Pt to amb without AD x100ft without deviations intermodal dispatcher goal 3: Pt to maintain SLS 10sec 2:3 trials to improve stair safety. Post Treatment Pain: 0/10 Time In: 0903 Time Out : 0943 Timed Code Treatment Minutes: 40 Minutes Total Treatment Time: 40 Minutes Diane Hargrove, PT Date: 05/03/2020 documented in this encounter* Oh Elizabeth, FLIGHT TECHNICIAN - 05/08/2020 3:15 PM EST [facility] Daily Note Date: 05/08/2020 Patient Name: Alvin Garcia : 1965 (54 y.o.) Referring Practitioner: Dr. James Marie Referral Date : 03/05/20 Diagnosis: Strain of L Achilles tendon, Achilles Tendonitis Treatment Diagnosis: Gait ataxia s/p L Achilles Repair Onset Date: 02/07/20 PT Insurance Information: [employer] Total # of Visits Approved: 24 Per [...] Time Frame for Short term goals: STGs=LTGs Assisted Goals - Time Frame for residential goals : 7 visits (Total 24) residential goal 1: Pt to score >35/80 on LEFS to improve ADLs intermodal dispatcher goal 2: Pt to amb without AD x100ft without deviations intermodal dispatcher goal 3: Pt to maintain SLS 10sec 2:3 trials to improve stair safety. Post Treatment Pain: 0/10 Time In: 1520 Time Out : 1600 Timed Code Treatment Minutes: 40 Minutes Total Treatment Time: 40 Minutes Oh Elizabeth PTA Date: 05/08/2020 documented in this encounter* Diane Hargrove, PT - 05/10/2020 3:00 PM EST [facility] Daily Note Date: 05/10/2020 Patient Name: Alvin Garcia : 1965 (54 y.o.) Referring Practitioner: Dr. James Marie Referral Date : 03/05/20 Diagnosis: Strain of L Achilles tendon, Achilles Tendonitis Treatment Diagnosis: Gait ataxia s/p L Achilles Repair Onset Date: 02/07/20 PT Insurance Information: [employer] Total # of Visits Approved: 24 Per [...] Time Frame for Short term goals: STGs=LTGs Assisted Goals - Time Frame for residential goals : 7 visits (Total 24) intermodal dispatcher goal 1: Pt to score >35/80 on LEFS to improve ADLs residential goal 2: Pt to amb without AD x100ft without deviations intermodal dispatcher goal 3: Pt to maintain SLS 10sec 2:3 trials to improve stair safety. Post Treatment Pain: 08/11 Time In: 1506 Time Out: 1552 Timed Code Treatment Minutes: 46 Minutes Total Treatment Time: 46 Minutes Diane Hargrove PT Date: 05/10/2020 documented in this encounter* Diane Hargrove, PT - 05/15/2020 3:15 PM EST [facility] Daily Note Date: 05/15/2020 Patient Name: Alvin Garcia : 1965 (54 y.o.) Referring Practitioner: Dr. James Marie Referral Date : 03/05/20 Diagnosis: Strain of L Achilles tendon, Achilles Tendonitis Treatment Diagnosis: Gait ataxia s/p L Achilles Repair Onset Date: 02/07/20 PT Insurance Information: [employer] Total # of Visits Approved: 24 Per Physician Order Total # of Visits to Date: 21 No Show: 0 Canceled Appointment: 0 Pre-Treatment Pain: 07/11 Assessment Assessment: Pt reports that her lateral foot pain persists as does the discomfort in the center of her arch. [place] [employer] initiated this date with improved activity [...] Time Frame for Short term goals: STGs=LTGs Chief Estimator Goals - Time Frame for intermodal dispatcher goals : 7 visits (Total 24) intermodal dispatcher goal 1: Pt to score >35/80 on LEFS to improve ADLs residential goal 2: Pt to amb without AD x100ft without deviations residential goal 3: Pt to maintain SLS 10sec 2:3 trials to improve stair safety. Post Treatment Pain: 0/10 Time In: 1520 Time Out: 1605 Timed Code Treatment Minutes: 45 Minutes Total Treatment Time: 45 Minutes Diane Hargrove, PT Date: 05/15/2020 documented in this encounter* Enrique Nj 05/17/2020 3:15 PM EST [facility] Daily Note Date: 05/17/2020 Patient Name: Alvin Garcia : 1965 (54 y.o.) Referring Practitioner: Dr. James Marie Referral Date : 03/05/20 Diagnosis: Strain of L Achilles tendon, Achilles Tendonitis Treatment Diagnosis: Gait ataxia s/p L Achilles Repair Onset Date: 02/07/20 PT Insurance Information: [employer] [place] Total # of Visits Approved: 24 Per [...] Time Frame for Short term goals: STGs=LTGs Assisted Goals - Time Frame for intermodal dispatcher goals : 7 visits (Total 24) intermodal dispatcher goal 1: Pt to score >35/80 on LEFS to improve ADLs intermodal dispatcher goal 2: Pt to amb without AD x100ft without deviations residential goal 3: Pt to maintain SLS 10sec 2:3 trials to improve stair safety. Post Treatment Pain: 07/11 Time In: 1525 Time Out : 1605 Timed Code Treatment Minutes: 40 Minutes Total Treatment Time: 40 Minutes Enrique Nj, BRENDA /Directly Supervised byDiane Hargrove PT Date: 05/17/2020 documented in this encounter* Enrique Nj - 05/21/2020 8:45 AM EST [facility] Daily Note Date: 05/21/2020 Patient Name: Alvin Garcia : 1965 (54 y.o.) Referring Practitioner: Dr. James Marie Referral Date : 03/05/20 Diagnosis: Strain of L Achilles tendon, Achilles Tendonitis Treatment Diagnosis: Gait ataxia s/p L Achilles Repair Onset Date: 02/07/20 PT Insurance Information: [employer] [place] Total # of Visits Approved: 24 Per [...] Time Frame for Short term goals: STGs=LTGs Chief Estimator Goals - Time Frame for residential goals : 7 visits (Total 24) intermodal dispatcher goal 1: Pt to score >35/80 on LEFS to improve ADLs intermodal dispatcher goal 2: Pt to amb without AD x100ft without deviations- MET intermodal dispatcher goal 3: Pt to maintain SLS 10sec 2:3 trials to improve stair safety.- MET Post Treatment Pain: 0/10 Time In: 844 Time Out : 930 Timed Code Treatment Minutes: 46 Minutes Total Treatment Time: 46 Minutes BRENDA Dawson /Directly Supervised byDiane Hargrove, PT Date: 05/21/2020 documented in this encounter* Oh Elizabeth, CARLENE - 04/17/2020 3:15 PM EST [facility] Daily Note Date: 04/17/2020 Patient Name: Alvin Garcia : 1965 (54 y.o.) Referring Practitioner: Dr. James Marie Referral Date : 03/05/20 Diagnosis: Strain of L Achilles tendon, Achilles Tendonitis Treatment Diagnosis: Gait ataxia s/p L Achilles Repair Onset Date: 02/07/20 PT Insurance Information: [employer] [place] Total # of Visits Approved: 17 Per [...] Time Frame for Short term goals: STGs=LTGs Chief Estimator Goals - Time Frame for residential goals : 17 visits intermodal dispatcher goal 1: Pt to score >35/80 on LEFS to improve ADLs intermodal dispatcher goal 2: Pt to amb without AD x100ft without deviations residential goal 3: Pt to maintain SLS 10sec 2:3 trials to improve stair safety. Post Treatment Pain: 06/13 Time In: 1520 Time Out : 1600 Timed Code Treatment Minutes: 40 Minutes Total Treatment Time: 40 Minutes Oh Elizabeth PTA Date: 04/17/2020 documented in this encounter* Diane Hargrove, PT - 04/05/2020 3:45 PM EST [facility] Daily Note Date: 04/05/2020 Patient Name: Alvin Garcia : 1965 (54 y.o.) Referring Practitioner: Dr. James Marie Referral Date : 03/05/20 Diagnosis: Strain of L Achilles tendon, Achilles Tendonitis Treatment Diagnosis: Gait ataxia s/p L Achilles Repair Onset Date: 02/07/20 PT Insurance Information: [employer] Total # of Visits Approved: 17 Per [...] Time Frame for Short term goals: STGs=LTGs Chief Estimator Goals - Time Frame for residential goals : 17 visits residential goal 1: Pt to score >35/80 on LEFS to improve ADLs intermodal dispatcher goal 2: Pt to amb without AD x100ft without deviations residential goal 3: Pt to maintain SLS 10sec 2:3 trials to improve stair safety. Post Treatment Pain: 09/10 Time In: 1545 Time Out : 1637 Timed Code Treatment Minutes: 52 Minutes Total Treatment Time: 52 Minutes Diane Hargrove, COLLIN Date: 04/05/2020 documented in this encounter Discharge Instructions * Instructions* Mundo Simeon MD - 02/23/[address] Simeon (Hernia Repair/Gallbladder) [phone] No Lifting, no bending, no pushing May [...] A MEDICAL NATURE, CALL YOUR DOCTOR/EMERGENCY ROOM. [facility] EMERGENCY ROOM [phone] Make a follow-up appointment with your surgeon. documented in this encounter Reason for Referral Status Reason Specialty Diagnoses / Procedures Referre d By Contact Referred To Contact Closed Cardiology Diagnoses Family history of lung cancer Procedures ECG 12 Lead Mundo Simeon MD [address] [address] Status Reason Specialty Diagnoses / Procedures Referred By Contact Referred To Contact Pending Review Radiology Diagnoses Abdominal pain, right upper quadrant Procedures US Abdomen Limited Study Mundo Simeon MD [address] [address] Status Reason Specialty Diagnoses / Procedures Referre d By Contact Referred To Contact Open Cardiology Diagnoses Pre-operative clearance Procedures EKG 12 lead Sixto Delgadillo, DO [address] [place] [address] Additional Source Comments INFORMATION SOURCE (unrecogn ized section and content) DATE CREATED AUTHOR 03/10/2019 [facility] DATE CREATED AUTHOR AUTHOR'S ORGANIZ ATION 02/04/2020 [facility] DATE CREATED AUTHOR AUTHOR'S ORGANIZ ATION 05/24/2020 [facility] DATE CREATED AUTHOR AUTHOR'S ORGANIZ ATION [...] 12 Lead Mundo Simeon MD [address] [address] Status Reason Specialty Diagnoses / Procedures Referred By Contact Referred To Contact Pending Review Radiology Diagnoses Abdominal pain, right upper quadrant Procedures US Abdomen Limited Study Mundo Simeon MD [address] [address] Aleena Gilbert RN - 02/22/2019 1:55 PM [...] 1965 (53 y.o.) Date of Service: 02/22/2019 [facility]: [id number] Procedure(s): CHOLECYSTECTOMY LAPAROSCOPIC Pre-Operative Diagnoses: * ACUTE ON CHRONIC CHOLECYSTITIS WITH CHOLELITHIASIS Post-Operative Diagnoses: ACUTE ON CHRONIC CHOLECYSTITIS WITH CHOLELITHIASIS; FATTY LIVER Surgeon(s) and Role: * Mundo Simeon MD - Primary Anesthesiologist: Rajat Becerra MD Petroleum Refinery Worker: Kimberly Anne RN Scrub Person: Shaila Starkey [...] Gallbladder TISSUE EXAM Mundo Simeon MD 02/22/2019 [id number] Implant(s): * No implants in log * Drain(s): * No LDAs found * Wound(s): Incision 02/22/19 Abdomen (Active) Mudno Simeon MD 02/22/2019 5:34 PM documented in [...] BE BASED ON THE PRIMARY CLINICAL RECORDS. [facility] [facility]. provides no warranty or guarantee of the accuracy or completeness of information in this document.
--- NOTE | 2023-06-26 07:55 | MM_ITS ---
Patient Name: ALVIN GARCIA MR#: [id number] : 1965 Exam Date: 06/26/2023 Ordering Doctor: DR Ashish Jansen . This report includes an Addendum and supersedes previous reports for this exam. RADIOLOGY REPORT PROCEDURE: MM POST BIOPSY LT COMPARISON: US BREAST VAC BX W/ CLIP LT, 06/26/2023. MM DIAGNOSTIC MAMMO UNILAT LT, 06/18/2023. MM TOMOSYNTHESIS SCREENING BI, 06/05/2023. MG MAMM SCREEN 3D PO CAD, 11/29/2021. MG MAMM SCREEN PO W CAD, 03/17/2019. INDICATIONS: Left Breast Mass BREAST COMPOSITION: Almost entirely fatty. FINDINGS: BIOPSY MARKER: A metallic marker has been placed in the targeted location within the upper inner quadrant of the left breast, approximately 11 o'clock mid breast. BREAST FINDINGS: Expected post biopsy findings. RECOMMENDATIONS: Dictated by: Partha Palma M.D. on 06/26/2023 at 13:15 Approved by: Partha Palma M.D. on 06/26/2023 at 13:17 ADDENDUM: Final pathologic diagnosis: Invasive ductal carcinoma, NOS type. FINDINGS: DIAGNOSTIC CATEGORY 6--KNOWN BIOPSY PROVEN MALIGNANCY: LEFT BREAST RECOMMENDATIONS: SURGICAL CONSULTATION. Dictated by: Partha Palma M.D. on 07/10/2023 at 08:40 Approved by: Partha Palma M.D. on 07/10/2023 at 08:41
--- NOTE | 2023-06-26 07:55 | US_ITS ---
[address] [address] Patient Name: ALVIN GARCIA MRN: [id number] date: 1965 Sex: F Assigned Patient Location: US Current Patient Location: Accession/Order Number: [id number] Exam Date: 06/26/2023 08:30 Report Date: 06/26/2023 09:36 At the request of: KOBY BRUMFIELD Procedure: US breast vac bx w/ clip LT EXAM: US breast vac bx w/ clip LT HISTORY: Left Breast Mass COMPARISON: Ultrasound breast left limited 06/18/2023 TECHNIQUE: After obtaining informed consent, ultrasound-guided biopsy was performed in the usual sterile manner. The location of the biopsy was then marked as indicated below. FINDINGS: Specimen #, Location: 4 core samples, 11:00 left breast. Biopsy Needle: 13 gauge vacuum core biopsy needle. Marker(s): A single metallic marker was placed in the appropriate targeted location. Medication: Buffered 1% Lidocaine with epinephrine administered locally. Complications: None. Pathology: Pending. US/US breast vac bx w/ clip LT IMPRESSION: 1. Uneventful ultrasound-guided breast biopsy. 2. Pathology results are pending. An addendum to this report will be provided after pathology results are available. Electronically authenticated by: JEANNIE ROBLES Date: 06/26/2023 09:36
[2023-06-26 08:35] VITALS: BP 161/84; O2SAT 97
[2023-06-26] MEDS: LIDOCAINE HCL 10 ML, SODIUM BICARBONATE 1 MEQ INJ (08:40)
[2023-06-26] MEDS: LIDOCAINE HCL/EPINEPHRINE 10 ML, SODIUM BICARBONATE 1 MEQ INJ (08:40)
--- NOTE | 2023-06-26 10:41 | SUR.PREOP ---
06/18/23 instructed pt on procedure, date, time, and prep.
== END 2023-06-26 09:10 | disposition home or self-care (01) ==
LOC: US 07:49
PROVIDERS: Radiology Diagnostic Radiology; Visit Provider Obstetrics & Gynecology
DX: C50.212 Malignant neoplasm of upper-inner quadrant of left female breast (principal); Z17.0 Estrogen receptor positive status [ER+]
CPT/HCPCS: 19083; 77065; 88305; 88341; 88342; 88360